=== PATIENT | male | born 1970 | race Caucasian/White ===

== ENCOUNTER → 2018-02-04 08:25 | Outpatient (CLI) | payer OTHER, SELFPAY ==
[2018-02-04 09:10] LABS: Hematocrit 44.7 % (41-53); Hemoglobin 15.9 g/dL (13.5-17.5); Mean Corpuscular HGB Conc 35.7 % (30-36); Mean Corpuscular Volume 81.3 fL (80-100); Platelet Count 203 X10^3/uL (150-400); Red Cell Distribution Width 13.9 % (11.6-14.8); White Blood Cell Count 7.5 X10^3/uL (4.5-11.0)
[2018-02-04 09:11] LABS: Add Manual Diff / Slide Review YES
[2018-02-04 09:23] LABS: Alanine Aminotransferase 33 IU/L (21-72); Albumin 4.3 g/dL (3.5-5.0); Albumin Globulin Ratio 1.7 (1.0-2.8); Alkaline Phosphatase 77 U/L (38-126); Aspartate Aminotransferase 22 IU/L (17-59); Bilirubin Total 0.8 mg/dL (0.2-1.3); Blood Urea Nitrogen 14 mg/dL (9-20); Calcium 9.2 mg/dL (8.4-10.2); Carbon Dioxide 32 mmol/L (22-32); Chloride 106 mmol/L (98-107); Cholesterol 165 mg/dL (140-199); Estimated Glomerular Filt Rate > 60.0 mL/min (>60); Globulin 2.6 g/dL (1.7-4.1); Glucose 141 mg/dL (70-100); HDL Cholesterol 38 mg/dL (40-60); HEMOLYSIS < 15 (0-50); LDL Cholesterol Calculated 100 mg/dL (<100); Potassium 4.4 mmol/L (3.4-5.1); Sodium 147 mmol/L (137-145); Total Protein 6.9 g/dL (6.3-8.2); Triglycerides 133 mg/dL (35-150)
[2018-02-04 09:28] LABS: Appearance Urine UA CLEAR; Bilirubin Urine UA NEGATIVE (NEGATIVE); Color Urine UA YELLOW; Glucose Urine UA NEGATIVE (Normal); Ketones Urine UA NEGATIVE (NEGATIVE); Leukocyte Esterase Urine UA NEGATIVE (NEGATIVE); Nitrite Urine UA Negative (Negative); Occult Blood Urine UA NEGATIVE (Negative); Protein Urine UA NEGATIVE (Negative); Specific Gravity Urine UA 1.025 (1.000-1.035); Urobilinogen Urine UA 0.2 E.U./dL (0.2)
[2018-02-04 09:46] LABS: Neutrophils Absolute Manual 5550 /uL (3000-5900); RBC Morphology Normal Morphology; Total Cells Counted 100
[2018-02-04 09:48] LABS: Prostate Specific Antigen 0.957 ng/mL (0.10-4.00)
[2018-02-04 10:03] LABS: Thyroid Stimulating Hormone 1.36 uIU/mL (0.47-4.68)
== END ==
PROVIDERS: PCP Family Medicine; Visit Provider Family Medicine
DX: E11.9 Type 2 diabetes mellitus without complications (principal); I10 Essential (primary) hypertension; Z51.81 Encounter for therapeutic drug level monitoring
CPT/HCPCS: 36415; 80053; 80061; 81003; 84153; 84443; 85025

== ENCOUNTER → 2018-05-02 16:12 | Outpatient (CLI) | payer OTHER, SELFPAY ==
--- NOTE | 2018-05-02 16:14 | DI.RAD.S_ITS ---
PROCEDURE: XR KNEE RT 3V INDICATIONS: right knee pain. TECHNIQUE: 3 views of the knee were acquired. COMPARISON: [facility], , KNEE 3V RIGHT, 12/31/2015, 9:34. FINDINGS: Bones: No fractures or dislocations. No suspicious bony lesions. Scattered degenerative spurring. The patella appears intact. Soft tissues: No joint effusion. Anterior soft tissue swelling No suspicious soft tissue calcifications. IMPRESSION: Anterior soft tissue swelling. No fracture. Dictated by: Torres Ruth M.D. on 05/02/2018 at 16:59 Approved by: Torres Ruth M.D. on 05/02/2018 at 17:00
== END ==
PROVIDERS: PCP Family Medicine; Visit Provider Physician Assistant
DX: M25.561 Pain in right knee (principal); M79.89 Other specified soft tissue disorders
CPT/HCPCS: 73562

== ENCOUNTER 2018-09-01 20:29 | Emergency (ER) | payer OTHER, SELFPAY ==
[2018-09-01 20:34] VITALS: BP 155/96; PULSE 97; RESP 18; TEMP 37; O2SAT 98; BMI 35.6
--- NOTE | 2018-09-01 20:38 | DI.RAD.S_ITS ---
PROCEDURE: XR ACUTE ABDOMEN SERIES INDICATIONS: abdominal pain with nausea and vomiting. hx of bowel resect TECHNIQUE: One view chest and two views of the abdomen were acquired. COMPARISON: None. FINDINGS: Surgical changes and devices: None. Chest: Lungs are clear. Heart size is normal. No pleural effusions. No pneumoperitoneum. Abdomen: Bowel gas pattern is normal. No suspicious calcifications. Visualized solid organ contours appear normal. Bones: No suspicious bony lesions. IMPRESSION: No acute cardiopulmonary pathology. No evidence of bowel obstruction no gross free air. Dictated by: Alex Stanley M.D. on 09/01/2018 at 21:11 Approved by: Alex Stanley M.D. on 09/01/2018 at 21:11
[2018-09-01 20:57] LABS: Add Manual Diff / Slide Review NO; Basophils Absolute Auto 100 /uL (0-100); Basophils Percent Auto 1.3 % (0-2); Eosinophils Absolute Auto 400 /uL (0-450); Eosinophils Percent Auto 3.1 % (2-4); Hematocrit 48.1 % (41-53); Hemoglobin 16.9 g/dL (13.5-17.5); Lymphocytes Absolute Auto 2600 /uL (1100-4500); Lymphocytes Percent Auto 22.6 % (25-40); Mean Corpuscular Hemoglobin 28.4 PG (26-34); Mean Corpuscular Volume 81.1 fL (80-100); Monocytes Absolute Auto 800 /uL (0-900); Neutrophils Absolute Auto 7600 /uL (1500-7000); Platelet Count 203 X10^3/uL (150-400); Red Blood Cell Count 5.94 X10^6/uL (4.5-5.9); Red Cell Distribution Width 13.8 % (11.6-14.8); White Blood Cell Count 11.5 X10^3/uL (4.5-11.0)
[2018-09-01 21:00] VITALS: BP 141/89; PULSE 87; RESP 16; O2SAT 98
[2018-09-01 21:01] LABS: Prothrombin Time 11.6 SECONDS (10.1-12.7)
[2018-09-01 21:04] LABS: PTT Partial Thromboplastin Tim 32 SECONDS (26.4-36.2)
[2018-09-01 21:05] LABS: Alanine Aminotransferase 43 IU/L (21-72); Albumin 4.9 g/dL (3.5-5.0); Albumin Globulin Ratio 1.6 (1.0-2.8); Alkaline Phosphatase 86 U/L (38-126); Aspartate Aminotransferase 26 IU/L (17-59); BUN Creatinine Ratio 18.9 (6-22); Bilirubin Total 0.9 mg/dL (0.2-1.3); Blood Urea Nitrogen 17 mg/dL (9-20); Calcium 9.5 mg/dL (8.4-10.2); Carbon Dioxide 28 mmol/L (22-32); Chloride 102 mmol/L (98-107); Estimated Glomerular Filt Rate > 60.0 mL/min (>60); Glucose 164 mg/dL (70-100); HEMOLYSIS < 15 (0-50); Lipase 61 U/L (23-300); Potassium 4.2 mmol/L (3.4-5.1); Sodium 141 mmol/L (137-145); Total Protein 7.9 g/dL (6.3-8.2)
--- NOTE | 2018-09-01 21:20 | DI.CT.S_ITS ---
PROCEDURE: CT ABDOMEN PELVIS W CON INDICATIONS: abdominal pain, hx abdominal surg TECHNIQUE: After the administration of intravenous contrast, 5 mm thick sections acquired from the diaphragm to the symphysis. 5 mm coronal and sagittal reformats were acquired. For radiation dose reduction, the following was used: automated exposure control, adjustment of mA and/or kV according to patient size. COMPARISON: None. FINDINGS: Image quality: Excellent. ABDOMEN: Lung bases: Lung bases are clear. Heart size is normal. Solid organs: Liver is normal in size and enhancement. Gallbladder is within normal limits. Biliary system is non dilated. Pancreas enhances normally. Spleen is enlarged. No discrete splenic lesion is noted. No adrenal nodules. Bilateral kidneys show no obstructing renal stone hydronephrosis. 6.3 x 7.5 x 7.9 cm slightly lobulated heterogeneously enhancing mass with solid and fluid density components is seen involving upper pole of right kidney and is concerning for neoplastic process such as renal cell carcinoma. Peritoneum and bowel: Small hiatal hernia is seen. Mild fluid distended small bowel loops are noted throughout abdomen with decompressed terminal ileal loops in right lower quadrant and suggestion of a transition point in right side of abdomen series 4 image 21 and series 2 image 43 and 42. No gross abnormal bowel wall thickening. No free fluid or free air. Post surgical changes involving rectosigmoid region is seen Nodes and vessels: No retroperitoneal or mesenteric adenopathy by size criteria. Aorta and inferior vena cava are normal in size. Miscellaneous: Liver hernia is seen and measures 5 cm in width containing a short segment of small bowel loop with no evidence of incarceration. PELVIS: Genitourinary: Bladder wall thickness is normal. Miscellaneous: No inguinal hernias or adenopathy. Bones: No suspicious bony lesions. No vertebral body compression fractures. IMPRESSION: 1. Finding is concerning for a low to moderate grade distal small bowel obstruction involving distal ileum in right lower quadrant. No free fluid or free air. Small hiatal hernia. Prior partial sigmoid resection. 2. Heterogeneously enhancing 6.3 x 7.5 x 7.9 cm right renal mass concerning for malignant process such as renal cell carcinoma. No hydronephrosis. Dictated by: Alex Stanley M.D. on 09/01/2018 at 22:15 Approved by: Alex Stanley M.D. on 09/01/2018 at 22:23
[2018-09-01] MEDS: ONDANSETRON 4 MG/2 ML INJ IV (21:36)
[2018-09-01] MEDS: MORPHINE 4 MG/ML INJ IV ×2 (21:36→22:39)
[2018-09-01] MEDS: SODIUM CHLORIDE 0.9% 1,000 ML 1000 ML IV (21:36)
--- NOTE | 2018-09-01 22:47 | ED.ABDPAIN ---
HPI - Abdominal Pain <LUIS Hernandez-BC - Last Filed: 09/02/18 00:15> General Chief Complaint: Abdominal Pain Stated Complaint: ABD PAIN Time Seen by Provider: 09/01/18 21:14 Source: patient and family Mode of arrival: ambulatory Limitations: no limitations History of Present Illness HPI narrative: The patient is a 48-year-old male nonsmoker with history of diverticulitis and anxiety presents with chief complaint of lower abdominal pain. he states that 9 years ago he had an episode of diverticulitis, with perforation that resulted in a colectomy. He states he feels the same today. He complains of nausea and vomiting. States his last bowel movement was just prior to arrival, though small. He denies any fevers chest pain or shortness of breath. He denies any dysuria urgency or frequency. He does complain of transient lower back pain on occasion. Related Data Previous Rx's Medication Instructions Recorded albuterol sulfate 3 ml INH X1 #100 ea 08/06/16 albuterol sulfate [Ventolin HFA] 2 puff INH QIDP PRN #1 inh 08/06/16 cyclobenzaprine 10 mg PO HSP PRN #30 tab 01/24/17 Lancets / QDAY #100 02/08/17 Test Strips - Freestyle str QDAY #100 02/08/17 metoprolol succinate ER 25 mg 25 mg PO QAM #90 tab 03/08/18 tablet,extended release 24 hr alprazolam 1 mg tablet 1 mg PO Q 8H PRN #30 tab 06/12/18 sertraline 100 mg tablet 100 mg PO QDAY #90 tab 08/21/18 Allergies Allergy/AdvReac Type Severity Reaction Status Date / Time metoclopramide [From REGLAN] Allergy Unknown Verified 09/01/18 20:33 Review of Systems <ANDREW Hernandez - Last Filed: 09/02/18 00:15> Review of Systems GENERAL: See HPI HEENT: Denies sinus pain, ear pain, sore throat, difficulty swallowing, dizziness. RESPIRATORY: Denies dyspnea, cough, wheezing, hemoptysis, sputum. CARDIOVASCULAR: Denies chest pain, palpitations, orthopnea, edema, GASTROINTESTINAL: See HPI : Denies dysuria, frequency, incontinence, hematuria, urinary retention. MUSCULOSKELETAL: denies weakness, joint pain, or bony pain SKIN: Denies rash, skin lesions, or other NEUROLOGIC: Denies weakness, headache, numbness, change in speech, confusion, seizures, incoordination. PSYCHIATRIC: No concerning psychosocial issues. 12 point review of systems is negative except for those stated above PFSH <ANDREW Hernandez - Last Filed: 09/02/18 00:15> Medical History Anxiety (Chronic) Arthritis (Chronic ~01/2017) Asthma (Chronic) Cataracts, bilateral (Chronic 09/2015) DDD (degenerative disc disease), lumbar (Chronic ~01/2017) Depression (Chronic) Diabetes (Chronic) Diverticular disease (Chronic) Hypertension (Chronic) Diverticulitis (Resolved) Low back pain (Resolved 02/2017) Social History Smoking Status: Never smoker Exam <ANDREW Hernandez - Last Filed: 09/02/18 00:15> Narrative Exam Narrative: GENERAL: This is a well-nourished, well-developed patient, appears uncomfortable. HEAD: Atraumatic. Normocephalic. No temporal or scalp tenderness. EYES: Pupils equal round and reactive. Extraocular motions intact. No scleral icterus. No injection or drainage. ENT: Nose without bleeding, purulent drainage or septal hematoma. Throat without erythema, tonsillar hypertrophy or exudate. Uvula midline. Airway patent. NECK: Trachea midline. No JVD or lymphadenopathy. Supple, nontender, no meningeal signs. CARDIOVASCULAR: Regular rate and rhythm without murmurs, gallops, or rubs. RESPIRATORY: Clear to auscultation. Breath sounds equal bilaterally. No wheezes, rales, or rhonchi. No cough. No accessory muscle use. No increased respiratory effort. GASTROINTESTINAL: Abdomen soft, active bowel sounds all 4 quadrants nondistended. No hepato-splenomegaly, or palpable masses. No guarding. diffuse tenderness to palpation right lower quadrant and left lower quadrant. EXTREMITIES: No clubbing, cyanosis, or edema. No joint tenderness, effusion, or edema noted. BACK: Nontender without deformity or crepitance. No flank tenderness. NEURO: AOx3. SKIN: No rash or erythema. Initial Vital Signs Initial Vital Signs: Vital Signs Temperature 98.6 F 09/01/18 20:34 Pulse Rate 97 H 09/01/18 20:34 Respiratory Rate 18 09/01/18 20:34 Blood Pressure 155/96 H 09/01/18 20:34 Pulse Oximetry 98 09/01/18 20:34 <Dominick Lackey DO - Last Filed: 09/02/18 06:53> Initial Vital Signs Initial Vital Signs: Vital Signs Temperature 98.6 F 09/01/18 20:34 Pulse Rate 97 H 09/01/18 20:34 Respiratory Rate 18 09/01/18 20:34 Blood Pressure 155/96 H 09/01/18 20:34 Pulse Oximetry 98 09/01/18 20:34 Course <ANDREW Hernandez - Last Filed: 09/02/18 00:15> Orders Ordered: ED Orders 09/01/18 23:50 XR chest 1V Stat Discontinued Medications Hydromorphone HCl (Dilaudid) 0.5 mg IV NOW ONE Stop: 09/01/18 23:13 Last Admin: 09/02/18 00:01 Dose: 0.5 mg Hydromorphone HCl (Dilaudid) 0.5 mg IV NOW ONE Stop: 09/02/18 00:10 Last Admin: 09/02/18 00:10 Dose: 0.5 mg Hydromorphone HCl (Dilaudid) 0.5 mg IV NOW ONE Stop: 09/02/18 02:32 Last Admin: 09/02/18 02:33 Dose: 0.5 mg Sodium Chloride (Normal Saline 0.9%) 1,000 mls @ 1,000 mls/hr IV BOLUS PRN PRN Reason: Fluid replacement Last Infusion: 09/01/18 22:37 Dose: 0 mls/hr Admin: 09/01/18 21:36 Dose: 1,000 mls/hr Morphine Sulfate (Morphine) 4 mg IV NOW ONE Stop: 09/01/18 21:20 Last Admin: 09/01/18 21:36 Dose: 4 mg Morphine Sulfate (Morphine) 4 mg IV NOW ONE Stop: 09/01/18 22:10 Last Admin: 09/01/18 22:39 Dose: 4 mg Ondansetron HCl (Zofran) 4 mg IV NOW ONE Stop: 09/01/18 20:44 Last Admin: 09/01/18 21:36 Dose: 4 mg Ondansetron HCl (Zofran) 4 mg IV NOW ONE Stop: 09/01/18 21:20 Last Admin: 09/01/18 21:36 Dose: Not Given Ondansetron HCl (Zofran) 4 mg IV NOW ONE Stop: 09/02/18 00:03 Last Admin: 09/02/18 00:04 Dose: 4 mg Consultations Consultation #1: Spoke with Radiology regarding patient's CT results. I discussed these results with the patient and his at length. We discussed the possibility that he has kidney cancer given the new mass on his kidney. Time: 22:20 Consultation #2: Spoke with Dr. Khan regarding the patient. He stated that given the patient's renal mass, he should be transferred somewhere with Urology as he was concerned that metastasis would be causing a small bowel obstruction. Subsequently outside facility transfer center were contacted. Time: 22:50 Vital Signs - 8 hr 09/01/18 22:59 09/02/18 00:58 09/02/18 01:30 Pulse Rate 65 101 H 111 H Respiratory Rate 16 18 16 Blood Pressure [Left Arm] 121/83 144/95 H 129/88 Pulse Oximetry 95 95 95 09/02/18 02:15 Pulse Rate 109 H Respiratory Rate 16 Blood Pressure [Left Arm] 130/89 Pulse Oximetry 97 <Dominick Lackey, - Last Filed: 09/02/18 06:53> Orders Ordered: ED Orders 09/01/18 23:50 XR chest 1V Stat Discontinued Medications Hydromorphone HCl (Dilaudid) 0.5 mg IV NOW ONE Stop: 09/01/18 23:13 Last Admin: 09/02/18 00:01 Dose: 0.5 mg Hydromorphone HCl (Dilaudid) 0.5 mg IV NOW ONE Stop: 09/02/18 00:10 Last Admin: 09/02/18 00:10 Dose: 0.5 mg Hydromorphone HCl (Dilaudid) 0.5 mg IV NOW ONE Stop: 09/02/18 02:32 Last Admin: 09/02/18 02:33 Dose: 0.5 mg Sodium Chloride (Normal Saline 0.9%) 1,000 mls @ 1,000 mls/hr IV BOLUS PRN PRN Reason: Fluid replacement Last Infusion: 09/01/18 22:37 Dose: 0 mls/hr Admin: 09/01/18 21:36 Dose: 1,000 mls/hr Morphine Sulfate (Morphine) 4 mg IV NOW ONE Stop: 09/01/18 21:20 Last Admin: 09/01/18 21:36 Dose: 4 mg Morphine Sulfate (Morphine) 4 mg IV NOW ONE Stop: 09/01/18 22:10 Last Admin: 09/01/18 22:39 Dose: 4 mg Ondansetron HCl (Zofran) 4 mg IV NOW ONE Stop: 09/01/18 20:44 Last Admin: 09/01/18 21:36 Dose: 4 mg Ondansetron HCl (Zofran) 4 mg IV NOW ONE Stop: 09/01/18 21:20 Last Admin: 09/01/18 21:36 Dose: Not Given Ondansetron HCl (Zofran) 4 mg IV NOW ONE Stop: 09/02/18 00:03 Last Admin: 09/02/18 00:04 Dose: 4 mg Vital Signs - 8 hr 09/01/18 22:59 09/02/18 00:58 09/02/18 01:30 Pulse Rate 65 101 H 111 H Respiratory Rate 16 18 16 Blood Pressure [Left Arm] 121/83 144/95 H 129/88 Pulse Oximetry 95 95 95 09/02/18 02:15 Pulse Rate 109 H Respiratory Rate 16 Blood Pressure [Left Arm] 130/89 Pulse Oximetry 97 MDM - Abdominal Pain <LUIS Hernandez-BC - Last Filed: 09/02/18 00:15> Lab Data Result diagrams: 09/01/18 20:45 09/01/18 20:45 Lab Results 09/01/18 09/01/18 09/01/18 Range/Units 20:45 20:45 20:45 WBC 11.5 H (4.5-11.0) X10^3/uL RBC 5.94 H (4.5-5.9) X10^6/uL Hgb 16.9 (13.5-17.5) g/dL Hct 48.1 (41-53) % MCV 81.1 (80-100) fL MCH 28.4 (26-34) PG MCHC 35.0 (30-36) % RDW 13.8 (11.6-14.8) % Plt Count 203 (150-400) X10^3/uL Neut % (Auto) 66.0 (50-75) % Lymph % (Auto) 22.6 L (25-40) % Toole % (Auto) 7.0 (3-14) % Eos % (Auto) 3.1 (2-4) % Baso % (Auto) 1.3 (0-2) % Neut # (Auto) 7600 H (4368-9733) /uL Lymph # (Auto) 2600 (2442-2719) /uL Toole # (Auto) 800 (0-900) /uL Eos # (Auto) 400 (0-450) /uL Baso # (Auto) 100 (0-100) /uL PT 11.6 (10.1-12.7) SECONDS INR 1.0 (0.9-1.3) APTT 32 (26.4-36.2) SECONDS Sodium 141 (137-145) mmol/L Potassium 4.2 (3.4-5.1) mmol/L Chloride 102 (98-107) mmol/L Carbon Dioxide 28 (22-32) mmol/L BUN 17 (9-20) mg/dL Creatinine 0.90 (0.66-1.25) mg/dL Estimated GFR > 60.0 (>60) mL/min BUN/Creatinine Ratio 18.9 (6-22) Glucose 164 H (70-100) mg/dL Calcium 9.5 (8.4-10.2) mg/dL Total Bilirubin 0.9 (0.2-1.3) mg/dL AST 26 (17-59) IU/L ALT 43 (21-72) IU/L Alkaline Phosphatase 86 (38-126) U/L Total Protein 7.9 (6.3-8.2) g/dL Albumin 4.9 (3.5-5.0) g/dL Globulin 3.0 (1.7-4.1) g/dL Albumin/Globulin Ratio 1.6 (1.0-2.8) Lipase 61 (23-300) U/L Point of care testing: Urine Dip Bedside Urine Glucose Negative Bedside Urine Bilirubin - Negative Bedside Urine Ketone +/- 5 Urine Specific [place] 1.010 Bedside Urine Occult Blood - Negative Bedside Urine pH 6.5 Bedside Urine Protein - Negative Bedside Urine Urobilinogen +/- 1mg Bedside Urine Nitrite - Negative Bedside Urine Leukocytes - Negative Esterase Imaging Data CT scan - abdomen: Radiologist's impression: Chart [facility] Diagn[facility] DATE TYPE STATUS AUTHOR Hx 09/01/18 21:20 JadenAlex 09/01/18 20:38 Alex Stanley 05/02/18 16:14 Torres Ruth Bryce H 48, M1 REG ER, ED.LOC - Main ED: R08 187.96cm 126.099kg BMI: 35.7kg/m? 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 5 mm coronal and sagittal reformats were acquired. For radiation dose reduction, the following was used: automated exposure control, adjustment of mA and/or kV according to patient size. COMPARISON: None. FINDINGS: Image quality: Excellent. ABDOMEN: Lung bases: Lung bases are clear. Heart size is normal. Solid organs: Liver is normal in size and enhancement. Gallbladder is within normal limits. Biliary system is non dilated. Pancreas enhances normally. Spleen is enlarged. No discrete splenic lesion is noted. No adrenal nodules. Bilateral kidneys show no obstructing renal stone hydronephrosis. 6.3 x 7.5 x 7.9 cm slightly lobulated heterogeneously enhancing mass with solid and fluid density components is seen involving upper pole of right kidney and is concerning for neoplastic process such as renal cell carcinoma. Peritoneum and bowel: Small hiatal hernia is seen. Mild fluid distended small bowel loops are noted throughout abdomen with decompressed terminal ileal loops in right lower quadrant and suggestion of a transition point in right side of abdomen series 4 image 21 and series 2 image 43 and 42. No gross abnormal bowel wall thickening. No free fluid or free air. Post surgical changes involving rectosigmoid region is seen Nodes and vessels: No retroperitoneal or mesenteric adenopathy by size criteria. Aorta and inferior vena cava are normal in size. Miscellaneous: Liver hernia is seen and measures 5 cm in width containing a short segment of small bowel loop with no evidence of incarceration. PELVIS: Genitourinary: Bladder wall thickness is normal. Miscellaneous: No inguinal hernias or adenopathy. Bones: No suspicious bony lesions. No vertebral body compression fractures. IMPRESSION: 1. Finding is concerning for a low to moderate grade distal small bowel obstruction involving distal ileum in right lower quadrant. No free fluid or free air. Small hiatal hernia. Prior partial sigmoid resection. 2. Heterogeneously enhancing 6.3 x 7.5 x 7.9 cm right renal mass concerning for malignant process such as renal cell carcinoma. No hydronephrosis. Dictated by: Alex Stanley M.D. on 09/01/2018 at 22:15 Approved by: Alex Stanley M.D. on 09/01/2018 at 22:23 Abdominal x-ray: Radiologist's impression: Adriano Pandey 48 M 1970 [place] [address] XRay Report Signed Patient: Adriano Pandey HMR#: [id number] : 1970Acct:[id number] Age/Sex: 48 / MDate of Service: 09/01/18 Loc: ED Accession Number: [id number] Procedure: XR acute abdomen series Ordering Provider: Dominick Lackey D.O. PROCEDURE: XR ACUTE ABDOMEN SERIES INDICATIONS: abdominal pain with nausea and vomiting. hx of bowel resect TECHNIQUE: One view chest and two views of the abdomen were acquired. COMPARISON: None. FINDINGS: Surgical changes and devices: None. Chest: Lungs are clear. Heart size is normal. No pleural effusions. No pneumoperitoneum. Abdomen: Bowel gas pattern is normal. No suspicious calcifications. Visualized solid organ contours appear normal. Bones: No suspicious bony lesions. IMPRESSION: No acute cardiopulmonary pathology. No evidence of bowel obstruction no gross free air. Dictated by: Alex Stanley M.D. on 09/01/2018 at 21:11 Approved by: Alex Stanley M.D. on 09/01/2018 at 21:11 [facility] Narrative Medical decision making narrative: The patient is a 48-year-old male presents with abdominal pain. CT scan revealed a moderate small bowel obstruction. I spoke with our surgeon on-call Dr. Khan who suggested that the patient go somewhere else as he has a new renal mass. I spoke at length with the patient and his about the possibility of malignancy given his new renal mass. Both [facility] and [facility] were contacted for possible transfer. [facility] was also contacted as was [facility]. The patient was given medications for pain and nausea and an NG tube was inserted. It was found that [facility], [facility] and [facility] were all full. Patient signed out to Dr. Lackey at midnight with a call in to [facility] as well as [place]. <Dominick Lackey, DO - Last Filed: 09/02/18 06:53> Lab Data Lab Results 09/01/18 09/01/18 09/01/18 Range/Units 20:45 20:45 20:45 WBC 11.5 H (4.5-11.0) X10^3/uL RBC 5.94 H (4.5-5.9) X10^6/uL Hgb 16.9 (13.5-17.5) g/dL Hct 48.1 (41-53) % MCV 81.1 (80-100) fL MCH 28.4 (26-34) PG MCHC 35.0 (30-36) % RDW 13.8 (11.6-14.8) % Plt Count 203 (150-400) X10^3/uL Neut % (Auto) 66.0 (50-75) % Lymph % (Auto) 22.6 L (25-40) % Toole % (Auto) 7.0 (3-14) % Eos % (Auto) 3.1 (2-4) % Baso % (Auto) 1.3 (0-2) % Neut # (Auto) 7600 H (7866-1195) /uL Lymph # (Auto) 2600 (0198-1681) /uL Toole # (Auto) 800 (0-900) /uL Eos # (Auto) 400 (0-450) /uL Baso # (Auto) 100 (0-100) /uL PT 11.6 (10.1-12.7) SECONDS INR 1.0 (0.9-1.3) APTT 32 (26.4-36.2) SECONDS Sodium 141 (137-145) mmol/L Potassium 4.2 (3.4-5.1) mmol/L Chloride 102 (98-107) mmol/L Carbon Dioxide 28 (22-32) mmol/L BUN 17 (9-20) mg/dL Creatinine 0.90 (0.66-1.25) mg/dL Estimated GFR > 60.0 (>60) mL/min BUN/Creatinine Ratio 18.9 (6-22) Glucose 164 H (70-100) mg/dL Calcium 9.5 (8.4-10.2) mg/dL Total Bilirubin 0.9 (0.2-1.3) mg/dL AST 26 (17-59) IU/L ALT 43 (21-72) IU/L Alkaline Phosphatase 86 (38-126) U/L Total Protein 7.9 (6.3-8.2) g/dL Albumin 4.9 (3.5-5.0) g/dL Globulin 3.0 (1.7-4.1) g/dL Albumin/Globulin Ratio 1.6 (1.0-2.8) Lipase 61 (23-300) U/L Point of care testing: Urine Dip Bedside Urine Glucose Negative Bedside Urine Bilirubin - Negative Bedside Urine Ketone +/- 5 Urine Specific [place] 1.010 Bedside Urine Occult Blood - Negative Bedside Urine pH 6.5 Bedside Urine Protein - Negative Bedside Urine Urobilinogen +/- 1mg Bedside Urine Nitrite - Negative Bedside Urine Leukocytes - Negative Esterase Discharge Plan Departure Patient Disposition: [facility] Clinical Impression: Small bowel obstruction Discharge Date/Time: 09/02/18 02:43 Interventions: ED Discharge Assessment Last Done: 09/02/18 02:05 Prescriptions: No Action alprazolam 1 mg tablet 1 mg PO Q 8H PRN (Reason: anxiety) Qty: 30 RF: 0 metoprolol succinate [Toprol XL] 25 mg tablet extended release 24 hr 25 mg PO QAM Qty: 90 RF: 3 albuterol sulfate 2.5 MG/3 ML solution for nebulization 3 ml INH X1 Qty: 100 RF: 3 albuterol sulfate [Ventolin HFA] 90 MCG/PUFF HFA aerosol inhaler 2 puff INH QIDP PRNQty: 1 RF: 5 cyclobenzaprine 10 MG tablet 10 mg PO HSP PRNQty: 30 RF: 0 Lancets QDAY Qty: 100 RF: 0 Test Strips - Freestyle QDAY Qty: 100 RF: 0 sertraline 100 mg tablet 100 mg PO QDAY Qty: 90 RF: 0 Referrals: Carline Renteria DO [Primary Care Provider] - <Dominick Lackey DO - Last Filed: 09/02/18 06:53> Cosign ED Attending Mary Jo Attestation: I was immediately available in the department for consultation. Documentation has been reviewed. I agree with assessment and plan.
[2018-09-01 22:59] VITALS: BP 121/83; PULSE 65; RESP 16; O2SAT 95
--- NOTE | 2018-09-01 23:01 | ED_ITS ---
HPI - Abdominal Pain <LUIS Hernandez-BC - Last Filed: 09/02/18 00:15> General Chief Complaint: Abdominal Pain Stated Complaint: ABD PAIN Time Seen by Provider: 09/01/18 21:14 Source: patient and family Mode of arrival: ambulatory Limitations: no limitations History of Present Illness HPI narrative: The patient is a 48-year-old male nonsmoker with history of diverticulitis and anxiety presents with chief complaint of lower abdominal pain. he states that 9 years ago he had an episode of diverticulitis, with perforation that resulted in a colectomy. He states he feels the same today. He complains of nausea and vomiting. States his last bowel movement was just prior to arrival, though small. He denies any fevers chest pain or shortness of breath. He denies any dysuria urgency or frequency. He does complain of transient lower back pain on occasion. Related Data Previous Rx's Medication Instructions Recorded albuterol sulfate 3 ml INH X1 #100 ea 08/06/16 albuterol sulfate [Ventolin HFA] 2 puff INH QIDP PRN #1 inh 08/06/16 cyclobenzaprine 10 mg PO HSP PRN #30 tab 01/24/17 Lancets / QDAY #100 02/08/17 Test Strips - Freestyle str QDAY #100 02/08/17 metoprolol succinate ER 25 mg 25 mg PO QAM #90 tab 03/08/18 tablet,extended release 24 hr alprazolam 1 mg tablet 1 mg PO Q 8H PRN #30 tab 06/12/18 sertraline 100 mg tablet 100 mg PO QDAY #90 tab 08/21/18 Allergies Allergy/AdvReac Type Severity Reaction Status Date / Time metoclopramide [From REGLAN] Allergy Unknown Verified 09/01/18 20:33 Review of Systems <ANDREW Hernandez - Last Filed: 09/02/18 00:15> Review of Systems GENERAL: See HPI HEENT: Denies sinus pain, ear pain, sore throat, difficulty swallowing, dizziness. RESPIRATORY: Denies dyspnea, cough, wheezing, hemoptysis, sputum. CARDIOVASCULAR: Denies chest pain, palpitations, orthopnea, edema, GASTROINTESTINAL: See HPI : Denies dysuria, frequency, incontinence, hematuria, urinary retention. MUSCULOSKELETAL: denies weakness, joint pain, or bony pain SKIN: Denies rash, skin lesions, or other NEUROLOGIC: Denies weakness, headache, numbness, change in speech, confusion, seizures, incoordination. PSYCHIATRIC: No concerning psychosocial issues. 12 point review of systems is negative except for those stated above PFSH <ANDREW Hernandez - Last Filed: 09/02/18 00:15> Medical History Anxiety (Chronic) Arthritis (Chronic ~01/2017) Asthma (Chronic) Cataracts, bilateral (Chronic 09/2015) DDD (degenerative disc disease), lumbar (Chronic ~01/2017) Depression (Chronic) Diabetes (Chronic) Diverticular disease (Chronic) Hypertension (Chronic) Diverticulitis (Resolved) Low back pain (Resolved 02/2017) Social History Smoking Status: Never smoker Exam <ANDREW Hernandez - Last Filed: 09/02/18 00:15> Narrative Exam Narrative: GENERAL: This is a well-nourished, well-developed patient, appears uncomfortable. HEAD: Atraumatic. Normocephalic. No temporal or scalp tenderness. EYES: Pupils equal round and reactive. Extraocular motions intact. No scleral icterus. No injection or drainage. ENT: Nose without bleeding, purulent drainage or septal hematoma. Throat without erythema, tonsillar hypertrophy or exudate. Uvula midline. Airway patent. NECK: Trachea midline. No JVD or lymphadenopathy. Supple, nontender, no meningeal signs. CARDIOVASCULAR: Regular rate and rhythm without murmurs, gallops, or rubs. RESPIRATORY: Clear to auscultation. Breath sounds equal bilaterally. No wheezes, rales, or rhonchi. No cough. No accessory muscle use. No increased respiratory effort. GASTROINTESTINAL: Abdomen soft, active bowel sounds all 4 quadrants nondistended. No hepato-splenomegaly, or palpable masses. No guarding. diffuse tenderness to palpation right lower quadrant and left lower quadrant. EXTREMITIES: No clubbing, cyanosis, or edema. No joint tenderness, effusion, or edema noted. BACK: Nontender without deformity or crepitance. No flank tenderness. NEURO: AOx3. SKIN: No rash or erythema. Initial Vital Signs Initial Vital Signs: Vital Signs Temperature 98.6 F 09/01/18 20:34 Pulse Rate 97 H 09/01/18 20:34 Respiratory Rate 18 09/01/18 20:34 Blood Pressure 155/96 H 09/01/18 20:34 Pulse Oximetry 98 09/01/18 20:34 <Dominick Lackey DO - Last Filed: 09/02/18 06:53> Initial Vital Signs Initial Vital Signs: Vital Signs Temperature 98.6 F 09/01/18 20:34 Pulse Rate 97 H 09/01/18 20:34 Respiratory Rate 18 09/01/18 20:34 Blood Pressure 155/96 H 09/01/18 20:34 Pulse Oximetry 98 09/01/18 20:34 Course <ANDREW Hernandez - Last Filed: 09/02/18 00:15> Orders Ordered: ED Orders 09/01/18 23:50 XR chest 1V Stat Discontinued Medications Hydromorphone HCl (Dilaudid) 0.5 mg IV NOW ONE Stop: 09/01/18 23:13 Last Admin: 09/02/18 00:01 Dose: 0.5 mg Hydromorphone HCl (Dilaudid) 0.5 mg IV NOW ONE Stop: 09/02/18 00:10 Last Admin: 09/02/18 00:10 Dose: 0.5 mg Hydromorphone HCl (Dilaudid) 0.5 mg IV NOW ONE Stop: 09/02/18 02:32 Last Admin: 09/02/18 02:33 Dose: 0.5 mg Sodium Chloride (Normal Saline 0.9%) 1,000 mls @ 1,000 mls/hr IV BOLUS PRN PRN Reason: Fluid replacement Last Infusion: 09/01/18 22:37 Dose: 0 mls/hr Admin: 09/01/18 21:36 Dose: 1,000 mls/hr Morphine Sulfate (Morphine) 4 mg IV NOW ONE Stop: 09/01/18 21:20 Last Admin: 09/01/18 21:36 Dose: 4 mg Morphine Sulfate (Morphine) 4 mg IV NOW ONE Stop: 09/01/18 22:10 Last Admin: 09/01/18 22:39 Dose: 4 mg Ondansetron HCl (Zofran) 4 mg IV NOW ONE Stop: 09/01/18 20:44 Last Admin: 09/01/18 21:36 Dose: 4 mg Ondansetron HCl (Zofran) 4 mg IV NOW ONE Stop: 09/01/18 21:20 Last Admin: 09/01/18 21:36 Dose: Not Given Ondansetron HCl (Zofran) 4 mg IV NOW ONE Stop: 09/02/18 00:03 Last Admin: 09/02/18 00:04 Dose: 4 mg Consultations Consultation #1: Spoke with Radiology regarding patient's CT results. I discussed these results with the patient and his at length. We discussed the possibility that he has kidney cancer given the new mass on his kidney. Time: 22:20 Consultation #2: Spoke with Dr. Khan regarding the patient. He stated that given the patient's renal mass, he should be transferred somewhere with Urology as he was concerned that metastasis would be causing a small bowel obstruction. Subsequently outside facility transfer center were contacted. Time: 22:50 Vital Signs - 8 hr 09/01/18 22:59 09/02/18 00:58 09/02/18 01:30 Pulse Rate 65 101 H 111 H Respiratory Rate 16 18 16 Blood Pressure [Left Arm] 121/83 144/95 H 129/88 Pulse Oximetry 95 95 95 09/02/18 02:15 Pulse Rate 109 H Respiratory Rate 16 Blood Pressure [Left Arm] 130/89 Pulse Oximetry 97 <Dominick Lackey, - Last Filed: 09/02/18 06:53> Orders Ordered: ED Orders 09/01/18 23:50 XR chest 1V Stat Discontinued Medications Hydromorphone HCl (Dilaudid) 0.5 mg IV NOW ONE Stop: 09/01/18 23:13 Last Admin: 09/02/18 00:01 Dose: 0.5 mg Hydromorphone HCl (Dilaudid) 0.5 mg IV NOW ONE Stop: 09/02/18 00:10 Last Admin: 09/02/18 00:10 Dose: 0.5 mg Hydromorphone HCl (Dilaudid) 0.5 mg IV NOW ONE Stop: 09/02/18 02:32 Last Admin: 09/02/18 02:33 Dose: 0.5 mg Sodium Chloride (Normal Saline 0.9%) 1,000 mls @ 1,000 mls/hr IV BOLUS PRN PRN Reason: Fluid replacement Last Infusion: 09/01/18 22:37 Dose: 0 mls/hr Admin: 09/01/18 21:36 Dose: 1,000 mls/hr Morphine Sulfate (Morphine) 4 mg IV NOW ONE Stop: 09/01/18 21:20 Last Admin: 09/01/18 21:36 Dose: 4 mg Morphine Sulfate (Morphine) 4 mg IV NOW ONE Stop: 09/01/18 22:10 Last Admin: 09/01/18 22:39 Dose: 4 mg Ondansetron HCl (Zofran) 4 mg IV NOW ONE Stop: 09/01/18 20:44 Last Admin: 09/01/18 21:36 Dose: 4 mg Ondansetron HCl (Zofran) 4 mg IV NOW ONE Stop: 09/01/18 21:20 Last Admin: 09/01/18 21:36 Dose: Not Given Ondansetron HCl (Zofran) 4 mg IV NOW ONE Stop: 09/02/18 00:03 Last Admin: 09/02/18 00:04 Dose: 4 mg Vital Signs - 8 hr 09/01/18 22:59 09/02/18 00:58 09/02/18 01:30 Pulse Rate 65 101 H 111 H Respiratory Rate 16 18 16 Blood Pressure [Left Arm] 121/83 144/95 H 129/88 Pulse Oximetry 95 95 95 09/02/18 02:15 Pulse Rate 109 H Respiratory Rate 16 Blood Pressure [Left Arm] 130/89 Pulse Oximetry 97 MDM - Abdominal Pain <LUIS Hernandez-BC - Last Filed: 09/02/18 00:15> Lab Data Result diagrams: 09/01/18 20:45 09/01/18 20:45 Lab Results 09/01/18 09/01/18 09/01/18 Range/Units 20:45 20:45 20:45 WBC 11.5 H (4.5-11.0) X10^3/uL RBC 5.94 H (4.5-5.9) X10^6/uL Hgb 16.9 (13.5-17.5) g/dL Hct 48.1 (41-53) % MCV 81.1 (80-100) fL MCH 28.4 (26-34) PG MCHC 35.0 (30-36) % RDW 13.8 (11.6-14.8) % Plt Count 203 (150-400) X10^3/uL Neut % (Auto) 66.0 (50-75) % Lymph % (Auto) 22.6 L (25-40) % [place] % (Auto) 7.0 (3-14) % Eos % (Auto) 3.1 (2-4) % Baso % (Auto) 1.3 (0-2) % Neut # (Auto) 7600 H (1553-9786) /uL Lymph # (Auto) 2600 (0654-9912) /uL [place] # (Auto) 800 (0-900) /uL Eos # (Auto) 400 (0-450) /uL Baso # (Auto) 100 (0-100) /uL PT 11.6 (10.1-12.7) SECONDS INR 1.0 (0.9-1.3) APTT 32 (26.4-36.2) SECONDS Sodium 141 (137-145) mmol/L Potassium 4.2 (3.4-5.1) mmol/L Chloride 102 (98-107) mmol/L Carbon Dioxide 28 (22-32) mmol/L BUN 17 (9-20) mg/dL Creatinine 0.90 (0.66-1.25) mg/dL Estimated GFR > 60.0 (>60) mL/min BUN/Creatinine Ratio 18.9 (6-22) Glucose 164 H (70-100) mg/dL Calcium 9.5 (8.4-10.2) mg/dL Total Bilirubin 0.9 (0.2-1.3) mg/dL AST 26 (17-59) IU/L ALT 43 (21-72) IU/L Alkaline Phosphatase 86 (38-126) U/L Total Protein 7.9 (6.3-8.2) g/dL Albumin 4.9 (3.5-5.0) g/dL Globulin 3.0 (1.7-4.1) g/dL Albumin/Globulin Ratio 1.6 (1.0-2.8) Lipase 61 (23-300) U/L Point of care testing: Urine Dip Bedside Urine Glucose Negative Bedside Urine Bilirubin - Negative Bedside Urine Ketone +/- 5 Urine Specific [place] 1.010 Bedside Urine Occult Blood - Negative Bedside Urine pH 6.5 Bedside Urine Protein - Negative Bedside Urine Urobilinogen +/- 1mg Bedside Urine Nitrite - Negative Bedside Urine Leukocytes - Negative Esterase Imaging Data CT scan - abdomen: Radiologist's impression: Chart Viewer Diagnostics DATE TYPE STATUS AUTHOR Hx 09/01/18 21:20 JadenAlex 09/01/18 20:38 Alex Stanley 05/02/18 16:14 Torres Ruth Bryce H 48, M1 REG ER, ED.LOC - Main ED: R08 187.96cm 126.099kg BMI: 35.7kg/m? Abdominal Pain Search Chart NF - Not included in interaction checking ONSET Today 22:59 Adriano Pandey 48 M 1970 [place] [address] CT Scan Report Signed Patient: Adriano Pandey HMR#: [id number] : 1970Acct:[id number] Age/Sex: 48 / MDate of Service: 09/01/18 Loc: ED Accession Number: [id number] Procedure: CT abdomen pelvis w con Ordering Provider: Mary Jarrett REEL SYSTEM OPERATOR- PROCEDURE: CT ABDOMEN PELVIS W CON INDICATIONS: abdominal pain, hx abdominal surg TECHNIQUE: After the administration of intravenous contrast, 5 mm thick sections acquired from the diaphragm to the symphysis. 5 mm coronal and sagittal reformats were acquired. For radiation dose reduction, the following was used: automated exposure control, adjustment of mA and/or kV according to patient size. COMPARISON: None. FINDINGS: Image quality: Excellent. ABDOMEN: Lung bases: Lung bases are clear. Heart size is normal. Solid organs: Liver is normal in size and enhancement. Gallbladder is within normal limits. Biliary system is non dilated. Pancreas enhances normally. Spleen is enlarged. No discrete splenic lesion is noted. No adrenal nodules. Bilateral kidneys show no obstructing renal stone hydronephrosis. 6.3 x 7.5 x 7.9 cm slightly lobulated heterogeneously enhancing mass with solid and fluid density components is seen involving upper pole of right kidney and is concerning for neoplastic process such as renal cell carcinoma. Peritoneum and bowel: Small hiatal hernia is seen. Mild fluid distended small bowel loops are noted throughout abdomen with decompressed terminal ileal loops in right lower quadrant and suggestion of a transition point in right side of abdomen series 4 image 21 and series 2 image 43 and 42. No gross abnormal bowel wall thickening. No free fluid or free air. Post surgical changes involving rectosigmoid region is seen Nodes and vessels: No retroperitoneal or mesenteric adenopathy by size criteria. Aorta and inferior vena cava are normal in size. Miscellaneous: Liver hernia is seen and measures 5 cm in width containing a short segment of small bowel loop with no evidence of incarceration. PELVIS: Genitourinary: Bladder wall thickness is normal. Miscellaneous: No inguinal hernias or adenopathy. Bones: No suspicious bony lesions. No vertebral body compression fractures. IMPRESSION: 1. Finding is concerning for a low to moderate grade distal small bowel obstruction involving distal ileum in right lower quadrant. No free fluid or free air. Small hiatal hernia. Prior partial sigmoid resection. 2. Heterogeneously enhancing 6.3 x 7.5 x 7.9 cm right renal mass concerning for malignant process such as renal cell carcinoma. No hydronephrosis. Dictated by: Alex Stanley M.D. on 09/01/2018 at 22:15 Approved by: Alex Stanley M.D. on 09/01/2018 at 22:23 Abdominal x-ray: Radiologist's impression: Adriano Pandey 48 M 1970 [place] [address] XRay Report Signed Patient: Adriano Pandey HMR#: [id number] : 1970Acct:[id number] Age/Sex: 48 / MDate of Service: 09/01/18 Loc: ED Accession Number: [id number] Procedure: XR acute abdomen series Ordering Provider: Dominick Lackey D.O. PROCEDURE: XR ACUTE ABDOMEN SERIES INDICATIONS: abdominal pain with nausea and vomiting. hx of bowel resect TECHNIQUE: One view chest and two views of the abdomen were acquired. COMPARISON: None. FINDINGS: Surgical changes and devices: None. Chest: Lungs are clear. Heart size is normal. No pleural effusions. No pneumoperitoneum. Abdomen: Bowel gas pattern is normal. No suspicious calcifications. Visualized solid organ contours appear normal. Bones: No suspicious bony lesions. IMPRESSION: No acute cardiopulmonary pathology. No evidence of bowel obstruction no gross free air. Dictated by: Alex Stanley M.D. on 09/01/2018 at 21:11 Approved by: Alex Stanley M.D. on 09/01/2018 at 21:11 [facility] Narrative Medical decision making narrative: The patient is a 48-year-old male presents with abdominal pain. CT scan revealed a moderate small bowel obstruction. I spoke with our surgeon on-call Dr. Khan who suggested that the patient go somewhere else as he has a new renal mass. I spoke at length with the patient and his about the possibility of malignancy given his new renal mass. Both [facility] and [facility] were contacted for possible transfer. [facility] was also contacted as was [facility]. The patient was given medications for pain and nausea and an NG tube was inserted. It was found that [facility], [facility] and [facility] were all full. Patient signed out to Dr. Lackey at midnight with a call in to [facility] as well as [facility]. <Dominick Lackey, DO - Last Filed: 09/02/18 06:53> Lab Data Lab Results 09/01/18 09/01/18 09/01/18 Range/Units 20:45 20:45 20:45 WBC 11.5 H (4.5-11.0) X10^3/uL RBC 5.94 H (4.5-5.9) X10^6/uL Hgb 16.9 (13.5-17.5) g/dL Hct 48.1 (41-53) % MCV 81.1 (80-100) fL MCH 28.4 (26-34) PG MCHC 35.0 (30-36) % RDW 13.8 (11.6-14.8) % Plt Count 203 (150-400) X10^3/uL Neut % (Auto) 66.0 (50-75) % Lymph % (Auto) 22.6 L (25-40) % [place] % (Auto) 7.0 (3-14) % Eos % (Auto) 3.1 (2-4) % Baso % (Auto) 1.3 (0-2) % Neut # (Auto) 7600 H (9704-3612) /uL Lymph # (Auto) 2600 (2825-2183) /uL [place] # (Auto) 800 (0-900) /uL Eos # (Auto) 400 (0-450) /uL Baso # (Auto) 100 (0-100) /uL PT 11.6 (10.1-12.7) SECONDS INR 1.0 (0.9-1.3) APTT 32 (26.4-36.2) SECONDS Sodium 141 (137-145) mmol/L Potassium 4.2 (3.4-5.1) mmol/L Chloride 102 (98-107) mmol/L Carbon Dioxide 28 (22-32) mmol/L BUN 17 (9-20) mg/dL Creatinine 0.90 (0.66-1.25) mg/dL Estimated GFR > 60.0 (>60) mL/min BUN/Creatinine Ratio 18.9 (6-22) Glucose 164 H (70-100) mg/dL Calcium 9.5 (8.4-10.2) mg/dL Total Bilirubin 0.9 (0.2-1.3) mg/dL AST 26 (17-59) IU/L ALT 43 (21-72) IU/L Alkaline Phosphatase 86 (38-126) U/L Total Protein 7.9 (6.3-8.2) g/dL Albumin 4.9 (3.5-5.0) g/dL Globulin 3.0 (1.7-4.1) g/dL Albumin/Globulin Ratio 1.6 (1.0-2.8) Lipase 61 (23-300) U/L Point of care testing: Urine Dip Bedside Urine Glucose Negative Bedside Urine Bilirubin - Negative Bedside Urine Ketone +/- 5 Urine Specific [place] 1.010 Bedside Urine Occult Blood - Negative Bedside Urine pH 6.5 Bedside Urine Protein - Negative Bedside Urine Urobilinogen +/- 1mg Bedside Urine Nitrite - Negative Bedside Urine Leukocytes - Negative Esterase Discharge Plan Departure Patient Disposition: General Acute Hospital Clinical Impression: Small bowel obstruction Discharge Date/Time: 09/02/18 02:43 Interventions: ED Discharge Assessment Last Done: 09/02/18 02:05 Prescriptions: No Action alprazolam 1 mg tablet 1 mg PO Q 8H PRN (Reason: anxiety) Qty: 30 RF: 0 metoprolol succinate [Toprol XL] 25 mg tablet extended release 24 hr 25 mg PO QAM Qty: 90 RF: 3 albuterol sulfate 2.5 MG/3 ML solution for nebulization 3 ml INH X1 Qty: 100 RF: 3 albuterol sulfate [Ventolin HFA] 90 MCG/PUFF HFA aerosol inhaler 2 puff INH QIDP PRNQty: 1 RF: 5 cyclobenzaprine 10 MG tablet 10 mg PO HSP PRNQty: 30 RF: 0 Lancets QDAY Qty: 100 RF: 0 Test Strips - Freestyle QDAY Qty: 100 RF: 0 sertraline 100 mg tablet 100 mg PO QDAY Qty: 90 RF: 0 Referrals: Carline Renteria DO [Primary Care Provider] - <Dominick Lackey DO - Last Filed: 09/02/18 06:53> Cosign ED Attending Mary Jo Attestation: I was immediately available in the department for consultation. Documentation has been reviewed. I agree with assessment and plan.
--- NOTE | 2018-09-01 23:50 | DI.RAD.S_ITS ---
PROCEDURE: XR CHEST 1V INDICATIONS: post NGT insertion TECHNIQUE: One view of the chest was acquired. COMPARISON: None. FINDINGS: Surgical changes and devices: None. Lungs and pleura: Lungs are clear. No pleural effusions or pneumothorax. Mediastinum: Mediastinal contours appear normal. Heart size is normal. Bones and chest wall: No suspicious bony lesions. Overlying soft tissues appear unremarkable. IMPRESSION: NG tube tip projects to the stomach. Dictated by: Alvaro Morris M.D. on 09/02/2018 at 9:04 Approved by: Alvaro Morris M.D. on 09/02/2018 at 9:04
[2018-09-02] MEDS: HYDROMORPHONE 1 MG INJ 0.5 MG IV ×3 (00:01→02:33)
[2018-09-02] MEDS: ONDANSETRON 4 MG/2 ML INJ IV (00:04)
[2018-09-02 00:58] VITALS: BP 144/95; PULSE 101; RESP 18; O2SAT 95
[2018-09-02 01:30] VITALS: BP 129/88; PULSE 111; RESP 16; O2SAT 95
[2018-09-02 02:15] VITALS: BP 130/89; PULSE 109; RESP 16; O2SAT 97
== END 2018-09-02 02:43 | disposition short-term general hospital (02) ==
PROVIDERS: Emergency Provider Emergency Medicine; PCP Family Medicine
DX: K56.609 Unspecified intestinal obstruction, unspecified as to partial versus complete obstruction (principal)
CPT/HCPCS: 36591; 71045; 74022; 74177; 80053; 81003; 83690; 85025; 85610; 85730; 96361; 96374; 96375; 96376; 99283; 99284; J1170; J2270; J2405; Q9967

== ENCOUNTER → 2018-12-13 15:18 | Outpatient (CLI) | payer OTHER, SELFPAY ==
[2018-12-13 15:53] LABS: Hematocrit 43.4 % (41-53); Hemoglobin 15.2 g/dL (13.5-17.5); Mean Corpuscular Hemoglobin 28.5 PG (26-34); Mean Corpuscular Volume 81.4 fL (80-100); Platelet Count 196 X10^3/uL (150-400); Red Blood Cell Count 5.33 X10^6/uL (4.5-5.9); Red Cell Distribution Width 15.2 % (11.6-14.8); White Blood Cell Count 7.3 X10^3/uL (4.5-11.0)
[2018-12-13 16:29] LABS: BUN Creatinine Ratio 13.3 (6-22); Blood Urea Nitrogen 20 mg/dL (9-20); Calcium 9.2 mg/dL (8.4-10.2); Carbon Dioxide 27 mmol/L (22-32); Chloride 106 mmol/L (98-107); Creatinine Urine Random 135.1 mg/dL; Estimated Glomerular Filt Rate 49.7 mL/min (>60); Glucose 98 mg/dL (70-100); HEMOLYSIS < 15 (0-50); Potassium 4.4 mmol/L (3.4-5.1); Protein (Total) Urine Random 8 mg/dL (0-12); Protein Creatinine Ratio Urine 0.05 GRAM/24H; Sodium 143 mmol/L (137-145)
== END ==
PROVIDERS: PCP Family Medicine; Visit Provider Student in an Organized Health Care Education/Training Program
DX: N05.9 Unspecified nephritic syndrome with unspecified morphologic changes (principal); R80.9 Proteinuria, unspecified; D70.9 Neutropenia, unspecified; D63.1 Anemia in chronic kidney disease
CPT/HCPCS: 36415; 80048; 82570; 84156; 85027

== ENCOUNTER → 2018-12-27 09:07 | Outpatient (CLI) | payer OTHER, SELFPAY ==
--- NOTE | 2018-12-27 09:08 | DI.MRI.S_ITS ---
PROCEDURE: MR LUMBAR SPINE WO CON INDICATIONS: Low back pain TECHNIQUE: Noncontrast sagittal T1 spin echo and T2 fast echo, sagittal STIR, axial T1 and T2 fast spin echo through the lumbar spine. In cases with scoliosis, additional coronal T2 fast spin echo may be performed. COMPARISON: None. FINDINGS: Image quality: Excellent. Alignment and Curvature: There is normal bony alignment. Bone Marrow: Marrow is of normal overall signal. No acute vertebral body compression fractures. Spinal Cord: Conus medullaris terminates at the T12 level. Visualized cord demonstrates normal signal and size. Paraspinous Soft Tissues: No paravertebral masses. The right kidney is not visualized and may be surgically absent. L1-L2: Moderate disc desiccation and height loss. No canal stenosis. No foraminal stenosis. L2-L3: Moderate disc desiccation and height loss. Broad-based disc bulge. Mild facet ligamentum flavum hypertrophy. No canal stenosis. No neural foraminal narrowing. L3-L4: Mild disc desiccation and height loss. Moderate facet ligamentum flavum hypertrophy. No canal stenosis. No neural foraminal narrowing. L4-L5: Moderate disc desiccation and height loss. Broad-based disc bulge. Moderate facet ligamentum flavum hypertrophy. Mild canal stenosis. There is a 0.6 x 0.5 x 1.4 cm left paracentral disc protrusion which narrows the left lateral recess (series 8, image 27 and series 7, image 10). L5-S1: Mild disc desiccation and height loss. Broad-based disc bulge. Mild bilateral neural foraminal narrowing. IMPRESSION: 1. L4-L5 left paracentral disc protrusion which narrows left lateral recess as above. 2. Mild to moderate disc desiccation and height loss throughout the lumbar spine. 3. Mild multilevel broad-based disc bulges with resultant mild canal stenosis at L4-5. Dictated by: Alcira Vasques M.D. on 12/27/2018 at 9:28 Approved by: Alcira Vasques M.D. on 12/27/2018 at 9:37
== END ==
PROVIDERS: PCP Family Medicine; Visit Provider Family Medicine
DX: M54.5 Low back pain (principal); M48.061 Spinal stenosis, lumbar region without neurogenic claudication; M48.07 Spinal stenosis, lumbosacral region; M51.36 Other intervertebral disc degeneration, lumbar region; M51.37 Other intervertebral disc degeneration, lumbosacral region; R29.890 Loss of height
CPT/HCPCS: 72148

== ENCOUNTER 2019-02-20 08:19 | Outpatient (CLI) | payer OTHER, SELFPAY ==
[2019-02-20] VITALS (8 sets, daily range): BP systolic 110–130; BP diastolic 70–93; PULSE 78–89; RESP 16–18; TEMP 36.3; O2SAT 96–98
--- NOTE | 2019-02-20 08:20 | DI.RAD.S_ITS ---
PROCEDURE: PAIN L/SI FACET INJ/BLK 1STL INDICATIONS: SPONDYLOSIS FINDINGS: Fluoroscopic spot filming was performed to verify placement of spinal needles at the left-sided L4-5 and L5-S1 facet joint regions level(s), as labeled on the films. Appropriate location(s) of the needle tip(s) was confirmed by injection of iodinated contrast. IMPRESSION: Successful left-sided facet localization as discussed above for steroid injection. Dictated by: Kenan Goldberg M.D. on 02/20/2019 at 10:58 Approved by: Kenan Goldberg M.D. on 02/20/2019 at 10:58
[2019-02-20] MEDS: MIDAZOLAM 5 MG/5 ML VIAL IV (09:27)
[2019-02-20] MEDS: LIDOCAINE 1% 20 ML 10 ML INJ (09:33)
[2019-02-20] MEDS: BUPIVACAINE 0.5% (PF) VIAL 5 ML INJ (09:33)
[2019-02-20] MEDS: BETAMETHASONE 30 MG/5 ML MDV 12 MG INJ (09:33)
[2019-02-20] MEDS: IOPAMIDOL 15 ML VIAL 3 ML INJ (09:33)
--- NOTE | 2019-02-20 09:39 | PC.NURSE ---
ASSISTING PT OFF TABLE AND TRANSPORTING TO POST PROC AREA IN STABLE CONDITION. PASSING CARE OFF TO ACACIA Lakhani RN.
--- NOTE | 2019-02-20 09:43 | P.PCN_ITS ---
Procedures Date/Time Date of procedure: 02/20/19 Time of procedure: 09:43 General Procedure description: PREOP DIAGNOSIS 1. FACET ARTHROPATHY 2. AXIAL LBP 3. MULTILEVEL DDD POST OP DIAGNOSIS 1. FACET ARTHROPATHY 2. AXIAL LBP 3. MULTILEVEL DDD PROCEDURES 1. FLUORSCOPICALLY GUIDED CONTRAST CONTROLLED FACET JOINT INJECTIONS BILATERAL L4/5, L5/S1 PHYSICIAN: Justus Hart, DO INDICATIONS Adriano is referred by Dr. Renteria for treatment of Axial LBP FINDINGS Multilevel Facet Arthropathy with Clinically significant axial LBP DESCRIPTION OF PROCEDURE Fluoroscopically guided, contrast-controlled bilateral L4/5, L5/S1 facet joint injections. Following review of allergy and review of potential side effects and complications, including, but not necessarily limited to, infection, allergic reaction, local tissue breakdown, stroke, temporary or permanent nerve injury, paralysis, and possible , the patient indicated that the patient understood and agreed to proceed. An informed consent document was signed by the patient, witnessed by a nurse, and placed in the patient's chart. Additionally, other treatment options including medications, modalities, and physical therapy were reviewed with the patient. After review of previous anaesthesic history and IV conscious sedation the patient was deemed safe to proceed with todays procedure with IV conscious sedation as ASA class II designation. Safety time-out was performed to confirm patient ID, procedure to be performed and site of procedure. IV sedation was accomplished with a combination of 4mg of Versed was administered by the RN after DO order, titrated to patient comfort during the course of the procedure while the patient remained responsive to all verbal commands In the prone position, following sterile prep and drape of the lumbar region, the posterior aspect of the L4/5, L5/S1 facet joints were identified fluoroscopically. The skin was anesthetized via a 25-gauge 1.5-inch needle with 1% lidocaine solution into the corresponding facet joints. At this point, a 22- gauge 3.5-inch spinal needle was atraumatically introduced and advanced under fluoroscopic guidance into the corresponding facet joints. Following negative aspiration, injections of approximately 0.2-cc of Isovue 200 confirmed interarticular placement without vascular uptake. The identical procedure was then performed at the L4/5, L5/S1 facet joints on the left. Radiological data, including multiple fluoroscopic views of the lumbosacral spine, reveal a spinal needle at the L4/5, L5/S1 facet joints bilaterally. Subsequent views show flow of contrast material both superiorly and inferiorly within the joint space without vascular or intrathecal uptake. At this point, a total of 0.5 cc including a mixture of 0.25cc Marcaine and 0.25cc betamethasone was injected without complication into each of the corresponding facet joints. The patient tolerated the procedure well without signs or symptoms of complications prior to transfer to the recovery area continued monitoring without incident. The patient was then transferred to the recovery area where they were observed for an appropriate period of time after the injection. The patient reported a VAS score of 7 prior to the procedure and a post- procedure VAS of 0. Total Fluoroscopy Time: 20.3 seconds Total Conscious Sedation Time: 24min POST OP INSTRUCTIONS The patient was provided a Pain Log to continue to record their response to the target-specific procedure prior to follow-up visit with their referring physician. Additionally, specific post-injection care instructions and a contact number to our office were provided if concerns arise regarding possible complications associated with the procedure are suspected. Justus Hart DO Complications: none
--- NOTE | 2019-02-20 11:37 | PC.NURSE ---
0944 arrived via w/c post procedure, able to transfer self from w/c to recliner without assist, resuming care from etienne martínez. snacks and drinks provided, and tolerated.
== END 2019-02-20 10:05 | disposition home or self-care (01) ==
LOC: RAD 08:19
PROVIDERS: PCP Family Medicine; Visit Provider Physical Medicine & Rehabilitation
DX: M47.817 Spondylosis without myelopathy or radiculopathy, lumbosacral region (principal); M47.816 Spondylosis without myelopathy or radiculopathy, lumbar region; M54.5 Low back pain; M51.36 Other intervertebral disc degeneration, lumbar region; M51.37 Other intervertebral disc degeneration, lumbosacral region
CPT/HCPCS: 64493; 64494; 99152; J0702; J2250; J3010

== ENCOUNTER → 2019-03-09 10:23 | Outpatient (CLI) | payer OTHER, SELFPAY ==
[2019-03-09 10:30] LABS: WBC Urine None Seen (0-5/HPF)
[2019-03-09 11:00] LABS: Appearance Urine UA CLEAR; Bilirubin Urine UA NEGATIVE (NEGATIVE); Color Urine UA YELLOW; Glucose Urine UA 3+ g/dL (Negative); Ketones Urine UA NEGATIVE (NEGATIVE); Leukocyte Esterase Urine UA NEGATIVE (NEGATIVE); Nitrite Urine UA NEGATIVE (Negative); Occult Blood Urine UA TRACE-LYSED (Negative); Protein Urine UA NEGATIVE (Negative); Urobilinogen Urine UA 0.2 E.U./dL (0.2)
[2019-03-09 11:15] LABS: Hematocrit 43.7 % (41-53); Hemoglobin 15.4 g/dL (13.5-17.5)
[2019-03-09 11:17] LABS: Bacteria Urine Occasional (0-1); RBC Urine 0-1/HPF (0-5/HPF)
[2019-03-09 11:40] LABS: BUN Creatinine Ratio 13.3 (6-22); Blood Urea Nitrogen 16 mg/dL (9-20); Calcium 8.9 mg/dL (8.4-10.2); Carbon Dioxide 23 mmol/L (22-32); Chloride 103 mmol/L (98-107); Estimated Glomerular Filt Rate > 60.0 mL/min (>60); Glucose 416 mg/dL (70-100); HEMOLYSIS < 15 (0-50); Phosphorous 3.5 mg/dL (2.5-4.5); Potassium 4.3 mmol/L (3.4-5.1); Sodium 136 mmol/L (137-145)
[2019-03-09 11:42] LABS: Creatinine Urine Random 64.6 mg/dL; Protein (Total) Urine Random 12 mg/dL (0-12); Protein Creatinine Ratio Urine 0.18 GRAM/24H
[2019-03-13 14:22] LABS: Parathyroid Hormone Int 57 pg/mL (14-64)
== END ==
PROVIDERS: PCP Family Medicine; Visit Provider Student in an Organized Health Care Education/Training Program
DX: N05.9 Unspecified nephritic syndrome with unspecified morphologic changes (principal); D64.9 Anemia, unspecified; E83.30 Disorder of phosphorus metabolism, unspecified; N25.81 Secondary hyperparathyroidism of renal origin; N30.00 Acute cystitis without hematuria; R80.9 Proteinuria, unspecified
CPT/HCPCS: 36415; 80048; 81001; 82570; 83970; 84100; 84156; 85014; 85018; 87086

== ENCOUNTER → 2019-04-03 07:45 | Outpatient (CLI) | payer OTHER, SELFPAY ==
[2019-04-03 08:59] LABS: Hemoglobin A1C% w Est Avg Glu 7.9 % (4.0-6.0)
[2019-04-03 09:01] LABS: Glucose 237 mg/dL (70-100)
== END ==
PROVIDERS: PCP Family Medicine; Visit Provider Family Medicine
DX: R73.9 Hyperglycemia, unspecified (principal)
CPT/HCPCS: 36415; 82947; 83036

== ENCOUNTER → 2019-04-25 07:04 | Outpatient (CLI) | payer OTHER, SELFPAY ==
[2019-04-25 07:13] LABS: RBC Urine None Seen (0-5/HPF)
[2019-04-25 08:38] LABS: Hematocrit 45.5 % (41-53)
[2019-04-25 08:42] LABS: Appearance Urine UA CLEAR; Bilirubin Urine UA NEGATIVE (NEGATIVE); Color Urine UA YELLOW; Glucose Urine UA 1+ g/dL (Negative); Ketones Urine UA NEGATIVE (NEGATIVE); Leukocyte Esterase Urine UA NEGATIVE (NEGATIVE); Nitrite Urine UA NEGATIVE (Negative); Occult Blood Urine UA NEGATIVE (Negative); Protein Urine UA NEGATIVE (Negative); Urobilinogen Urine UA 0.2 E.U./dL (0.2); pH Urine UA 5.5 (4.5-8.0)
[2019-04-25 08:53] LABS: BUN Creatinine Ratio 13.1 (6-22); Blood Urea Nitrogen 17 mg/dL (9-20); Calcium 9.5 mg/dL (8.4-10.2); Carbon Dioxide 30 mmol/L (22-32); Chloride 101 mmol/L (98-107); Estimated Glomerular Filt Rate 58.4 mL/min (>60); Glucose 197 mg/dL (70-100); HEMOLYSIS < 15 (0-50); Phosphorous 3.7 mg/dL (2.5-4.5); Potassium 4.6 mmol/L (3.4-5.1); Sodium 140 mmol/L (137-145); Squamous Epithelial Cell Urine 0-1 /HPF (0-5/HPF); WBC Urine 0-1/HPF (0-5/HPF)
[2019-04-25 08:54] LABS: Bacteria Urine Occasional (0-1); Culture Indicated Urine Cult Not Indicated
[2019-04-25 08:55] LABS: Creatinine Urine Random 165.6 mg/dL; Protein (Total) Urine Random 8 mg/dL (0-12); Protein Creatinine Ratio Urine 0.04 GRAM/24H
[2019-04-28 16:13] LABS: Parathyroid Hormone Int 36 pg/mL (14-64)
== END ==
PROVIDERS: PCP Family Medicine; Visit Provider Student in an Organized Health Care Education/Training Program
DX: N05.9 Unspecified nephritic syndrome with unspecified morphologic changes (principal); D64.9 Anemia, unspecified; E83.30 Disorder of phosphorus metabolism, unspecified; N25.81 Secondary hyperparathyroidism of renal origin; N30.00 Acute cystitis without hematuria; R80.9 Proteinuria, unspecified
CPT/HCPCS: 36415; 80048; 81001; 82570; 83970; 84100; 84156; 85014; 85018; 87077; 87086; 87147

== ENCOUNTER 2019-05-08 15:35 | Outpatient (CLI) | payer BC, OTHER, SELFPAY ==
[2019-05-08] VITALS (8 sets, daily range): BP systolic 110–153; BP diastolic 56–90; PULSE 81–90; RESP 16–18; O2SAT 95–97
--- NOTE | 2019-05-08 15:36 | DI.RAD.S_ITS ---
PROCEDURE: PAIN L/S TRANSFORAMINAL INJECT INDICATIONS: RADICULOPATHY FINDINGS: Fluoroscopic spot filming was performed to verify placement of spinal needles at the L4-L5 level(s), as labeled on the films. Appropriate location(s) of the needle tip(s) was confirmed by injection of iodinated contrast. IMPRESSION: Fluoroscopy for pain management. Dictated by: Fang Giang M.D. on 05/10/2019 at 8:53 Approved by: Fang Giang M.D. on 05/10/2019 at 8:53
[2019-05-08] MEDS: MIDAZOLAM 5 MG/5 ML VIAL IV (16:00)
[2019-05-08] MEDS: fentaNYL 100 MCG/2 ML INJ 50 MCG IV (16:00)
[2019-05-08] MEDS: DEXAMETHASONE 10 MG/ML VIAL 20 MG INJ (16:06)
[2019-05-08] MEDS: IOPAMIDOL 15 ML VIAL 3 ML INJ (16:06)
[2019-05-08] MEDS: BUPIVACAINE 0.25% (PF) VIAL 2 ML INJ (16:06)
[2019-05-08] MEDS: BETAMETHASONE 30 MG/5 ML MDV 6 MG INJ (16:06)
--- NOTE | 2019-05-08 16:11 | PC.NURSE ---
ASSISTING PT OFF TABLE AND TRANSPORTING TO POST PROC AREA IN STABLE CONDITION. PASSING RN CARE OF PT OFF TO ALESSANDRO Ely RN.
--- NOTE | 2019-05-08 16:18 | PM.PROC.1 ---
Procedures Date/Time Date of procedure: 05/08/19 Time of procedure: 16:18 General Procedure description: PREOP DIAGNOSIS 1. FORMAINAL STENOSIS WITH LE SYMPTOMS POST OP DIAGNOSIS 1. FORMAINAL STENOSIS WITH LE SYMPTOMS PROCEDURES 1. FLUOROSCOPICALLY GUIDED CONTRAST CONTROLLED TRANSFORAMINAL EPIDURAL STEROID INJECTION - LEFT L4/5 PHYSICIAN: Justus Hart DO INDICATIONS: Adriano is referred by Dr. Renteria for treatment of Foraminal Stenosis with Left LE Symptoms FINDINGS Foraminal Nerve Root Compression secondary to disc disease and facet hypertrophy DESCRIPTION OF PROCEDURE: Following review of allergy and review of potential side effects and complications, including, but not necessarily limited to, infection, allergic reaction, local tissue breakdown, stroke, temporary or permanent nerve injury, paralysis, and possible , the patient indicated that the patient understood and agreed to proceed. An informed consent document was signed by the patient, witnessed by a nurse, and placed in the patient's chart. Additionally, other treatment options including medications, modalities, and physical therapy were reviewed with the patient. After review of previous anaesthesic history and IV conscious sedation the patient was deemed safe to proceed with todays procedure with IV conscious sedation as ASA class II designation. Safety time-out was performed to confirm patient ID, procedure to be performed and site of procedure. IV sedation was accomplished with a combination of 3mg of Versed and 50mcg of Fentanyl administered by the RN after DO order, titrated to patient comfort during the course of the procedure while the patient remained responsive to all verbal commands In the prone position following sterile prep and drape of the lumbar region, the left L4/5 posterior neuroforamen was identified fluoroscopically. The skin was anesthetized via a 25-gauge 1.5-inch needle with 1% lidocaine solution. At this point, a 25-gauge 3.5-inch spinal needle was atraumatically introduced and advanced under fluoroscopic guidance through the posterior left L4/5 neuroforamen to approximately the anterior aspect of the canal. Depth was confirmed on lateral view. Following negative aspiration, injection of approximately 1.5 cc of Isovue 200 under live fluoroscopy in the AP view confirmed excellent flow along the nerve root, into the epidural space without vascular or intrathecal uptake observed Radiological data, including multiple fluoroscopic views of the lumbosacral spine, reveal a spinal needle at the left L4/5 posterior neuroforamen. Subsequent views show flow of contrast material flowing superiorly and inferiorly along the nerve root confirming epidural flow. Subsequently, a test dose of 1.5 cc of 1% lidocaine solution was administered and patient was observed for two minutes for signs or symptoms of complications, including abdominal pain, shortness of breath, bilateral upper or lower extremity weakness, nausea and vomiting, prior to steroid injection. At this point, a total of 3cc or 20mg of dexamethasone and 6mg of betamethasone was injected without incident. The procedure tolerated the procedure well without signs or symptoms of complications prior to transfer to the recovery area continued monitoring without incident. The patient was then transferred to the recovery area where they were observed for an appropriate time after the injection. The patient reported a VAS score of 7 prior to the procedure and a post-procedure VAS of 0. Total Fluoroscopy Time: 20.9 seconds Total Conscious Sedation Time: 24min POST OP INSTRUCTIONS The patient was provided a Pain Log to continue to record their response to the target-specific procedure prior to follow-up visit with their referring physician. Additionally, specific post-injection care instructions and a contact number to our office were provided if concerns arise regarding possible complications associated with the procedure are suspected. Justus Hart DO Complications: none
--- NOTE | 2019-05-08 16:43 | PC.NURSE ---
Post procedure note: Arrived for post procedure monitoring. Awake and alert. Transferred from w/c to recliner independently. VSS, O2 sat WNL on RA. Pain level 0/10. No unusual numbness or tingling to lower extremities. Discharged to home with and son. Ambulated to car. Gait steady.
== END 2019-05-08 16:37 | disposition home or self-care (01) ==
LOC: RAD 15:35
PROVIDERS: PCP Family Medicine; Visit Provider Physical Medicine & Rehabilitation
DX: M48.061 Spinal stenosis, lumbar region without neurogenic claudication (principal); M51.16 Intervertebral disc disorders with radiculopathy, lumbar region
CPT/HCPCS: 64483; 99152; J0702; J1100; J2250; J3010

== ENCOUNTER → 2019-06-22 09:05 | Outpatient (CLI) | payer BC, OTHER, SELFPAY ==
[2019-06-22 10:19] LABS: Alanine Aminotransferase 21 IU/L (<50); Albumin 4.3 g/dL (3.5-5.0); Albumin Globulin Ratio 1.8 (1.0-2.8); Alkaline Phosphatase 86 U/L (38-126); Aspartate Aminotransferase 19 IU/L (17-59); BUN Creatinine Ratio 15.8 (6-22); Bilirubin Total 0.7 mg/dL (0.2-1.3); Blood Urea Nitrogen 19 mg/dL (9-20); Calcium 9.2 mg/dL (8.4-10.2); Carbon Dioxide 27 mmol/L (22-32); Chloride 105 mmol/L (98-107); Cholesterol 172 mg/dL (140-199); Estimated Glomerular Filt Rate > 60.0 mL/min (>60); Globulin 2.4 g/dL (1.7-4.1); Glucose 128 mg/dL (70-100); HDL Cholesterol 32 mg/dL (40-60); HEMOLYSIS < 15 (0-50); LDL Cholesterol Calculated 114 mg/dL (<100); Potassium 4.2 mmol/L (3.4-5.1); Sodium 141 mmol/L (137-145); Total Protein 6.7 g/dL (6.3-8.2); Triglycerides 128 mg/dL (35-150)
== END ==
PROVIDERS: PCP Family Medicine; Visit Provider Family Medicine
DX: Z13.220 Encounter for screening for lipoid disorders (principal); E11.9 Type 2 diabetes mellitus without complications; N18.9 Chronic kidney disease, unspecified; R00.0 Tachycardia, unspecified
CPT/HCPCS: 36415; 80053; 80061; 83036

== ENCOUNTER → 2019-06-25 13:53 | Outpatient (CLI) | payer BC, OTHER, SELFPAY ==
--- NOTE | 2019-06-25 14:55 | PM.TREADMILL ---
Cardiac Stress Test Report Referral & Results Date Patient Seen: 06/25/19 Requesting provider: Carline Renteria Indication: Tachycardia Rest ECG: Unremarkable Procedure Note: After both written and verbal informed consent the patient had an IV started by the diagnostic imaging RN and then was hooked up to the treadmill monitoring system. The patient was placed on the treadmill at 1 mile an hour with no elevation and was then injected with the Sasha scan material. The Cardiolite was then immediately administered. The patient spent an additional 2-3 minutes on the treadmill before being returned to the [facility] in the supine position. The patient had a normal response to all infused materials. Patient quickly became tachycardic with infusion of the above materials. His peak heart rate it 150+ without any obvious symptoms or side effects. He returned to normal baseline at cessation of activity on the treadmill Impression: Please see perfusion imaging report for details regarding possible ischemia Please note: Actual ECG tracings can be found in the PACS system.
--- NOTE | 2019-06-26 19:05 | DI.NM.S_ITS ---
DATE OF SERVICE: 06/25/2019 PROCEDURE PERFORMED: Pharmacologic vasodilator stress and rest myocardial perfusion study with gating to assess ejection fraction and regional wall motion. ORDERING PROVIDER: Dr. Carline Renteria. INDICATIONS: The patient is a 49-year-old hypertensive diabetic male with an abnormal ECG. PHARMACOLOGIC STRESS:: Per protocol. 0.4 mg of regadenoson was infused, augmented by walking on a treadmill. With this, he had a brisk chronotropic response with a resting heart rate of 83 bpm, increasing to a maximum of 152 bpm (89 percent of his predicted maximum). He had a normal blood pressure response. He had no chest discomfort. His resting ECG is normal and there are no significant ischemic changes with stress. There were no arrhythmias seen beyond sinus tachycardia. Per protocol, 25.2 mCi of technetium-99m Myoview was injected and he was imaged 15 minutes later using a gated SPECT acquisition protocol. He returned the following day and was reinjected with an additional 22.1 mCi of technetium-99m Myoview and was imaged 30 minutes later, again, using a gated SPECT acquisition algorithm. FINDINGS: RAW DATA:: There is fairly poor myocardial tracer uptake with significant hepatic and splenic uptake that makes the interpretation somewhat challenging. There is clear diaphragmatic attenuation noted. Lung-heart ratio is normal at 0.35 with a normal TID ratio of 0.87. QUANTITATED GATED SPECT:: Post-stress ejection fraction is estimated at 71% without any regional wall motion abnormality and, specifically, the inferior wall grossly appears to have normal contractility. The resting ejection fraction is 63% with an end-diastolic volume of 116 mL. MYOCARDIAL PERFUSION IMAGING:: Post-stress supine images are of marginal quality but suggest a mild perfusion defect throughout the inferior wall in a pattern that would be consistent with diaphragmatic attenuation, supported by its complete resolution on the prone images, revealing a completely normal perfusion pattern. The resting images show an identical perfusion pattern compared to the post-stress supine images without any areas of improvement. IMPRESSION: 1. Probable normal myocardial perfusion study. 2. Mild fixed inferior wall perfusion defect that completely resolves on prone imaging, most consistent with diaphragmatic attenuation artifact. There is no compelling evidence for any myocardial ischemia or previous myocardial infarction. 3. Normal left ventricular systolic function without any regional wall motion abnormality. 4. No angina or ECG evidence of ischemia with pharmacologic vasodilator stress. Adriano Pandey - RS/fn/courtney doc#: [id number]/job#: [id number] dd: 06/26/2019 16:45:00 dt: 06/26/2019 18:16:00 DICTATING MD/COPIES TO: Justus Salazar MD; Carline Renteria, DO COPIES MNE: SOLOMON;
== END ==
PROVIDERS: PCP Family Medicine; Visit Provider Family Medicine
DX: R94.31 Abnormal electrocardiogram [ECG] [EKG] (principal); R00.0 Tachycardia, unspecified; E11.9 Type 2 diabetes mellitus without complications; I10 Essential (primary) hypertension
CPT/HCPCS: 78452; 93016; 93017; 93018; A9502; J2785

== ENCOUNTER 2019-06-26 08:17 | Outpatient (CLI) | payer BC, OTHER, SELFPAY ==
[2019-06-26] VITALS (9 sets, daily range): BP systolic 110–128; BP diastolic 64–83; PULSE 67–85; RESP 16; TEMP 36.7; O2SAT 94–97
--- NOTE | 2019-06-26 08:20 | DI.RAD.S_ITS ---
PROCEDURE: PAIN L/S FACET INJ/BLK 1ST [id number] COMPARISON: None. INDICATIONS: SPONDYLOSIS FINDINGS: Fluoroscopic spot filming was performed to verify placement of spinal needles at the L4, L5, S1 level(s), as labeled on the films. Appropriate location(s) of the needle tip(s) was confirmed by injection of iodinated contrast. Dictated by: Torres Ruth M.D. on 06/26/2019 at 11:33 Approved by: Torres Ruth M.D. on 06/26/2019 at 11:34
[2019-06-26] MEDS: fentaNYL 100 MCG/2 ML INJ 50 MCG IV (09:54)
[2019-06-26] MEDS: MIDAZOLAM 5 MG/5 ML VIAL IV (09:54)
[2019-06-26] MEDS: IOPAMIDOL 15 ML VIAL 3 ML INJ (10:02)
[2019-06-26] MEDS: BUPIVACAINE 0.5% (PF) VIAL 5 ML INJ (10:02)
[2019-06-26] MEDS: LIDOCAINE 1% 20 ML 10 ML INJ (10:02)
--- NOTE | 2019-06-26 10:08 | PC.NURSE ---
ASSISTING PT OFF TABLE AND TRANSPORTING TO POST PROC AREA IN STABLE CONDITION. PASSING RN CARE OF PT OFF TO ALESSANDRO Ely RN.
--- NOTE | 2019-06-26 10:15 | PM.PROC.1 ---
Procedures Date/Time Date of procedure: 06/26/19 Time of procedure: 10:15 General Procedure description: Procedure description: 1. FACET ARTHROPATHY PROCEDURES: 1. BILATERAL- L4, L5 and S1 DIAGNOSTIC MB BLOCKS with SA Anesthetic PHYSICIAN: Justus Hart DO CAROLINA Oh is referred by for treatment of Bilateral Axial LBP. DESCRIPTION OF PROCEDURE Fluoroscopically guided, contrast-controlled bilateral L4, L5 and S1 medial branch blocks with 0.5cc of 0.1% Lidocaine. Following review of allergy and review of potential side effects and complications, including, but not necessarily limited to, infection, allergic reaction, local tissue breakdown, nerve injury, paralysis, stroke and possible , the patient indicated that the patient understood and agreed to proceed. An informed consent document was signed by the patient, witnessed by a nurse, and placed in the patient's chart. After review of previous anaesthesic history and IV conscious sedation the patient was deemed safe to proceed with todays procedure with IV conscious sedation as ASA class II designation. Safety time-out was performed to confirm patient ID, procedure to be performed and site of procedure. IV sedation was accomplished with a combination of 3mg of Versed and 50mcg of Fentanyl was administered by the RN after DO order, titrated to patient comfort during the course of the procedure while the patient remained responsive to all verbal commands In the prone position, following sterile prep and drape of the lumbar region, the right L4, L5 and S1 anatomical location of the medial branch of the dorsal ramus was identified fluoroscopically. Subsequently an anesthetic skin wheal using 1% lidocaine solution was initiated at each of the anatomical spots. Subsequently then a 22-gauge 3.5-inch spinal needle was atraumatically introduced and advanced under fluoroscopic guidance at each of the corresponding sites at the right L4, L5 and S1 MB. After negative aspiration, 0.2cc of Isovue 200 was injected, confirming placement without vascular or intrathecal uptake. Subsequently then 0.5cc of 0.1% Lidocaine solution was injected at each of the corresponding sites at the right L4, L5 and S1 medial branch locations. The identical procedure was replicated on the left. The patient tolerated the procedure well without signs or symptoms of complications prior to transfer to the recovery area continued monitoring without incident. Post-procedure, the patient was monitored initiating provocative activities to measure the amount of relief from block of the facetogenic pain. The patient reported a VAS of 8 prior to the procedure and a post-procedure VAS of 0. It has been a pleasure to assist in the diagnostic and therapeutic care of your patient. Total Fluoroscopy Time: 13 seconds Total Conscious Sedation Time: 24min POST OP INSTRUCTIONS The patient was provided with a Pain Log to complete over the next several hours and subsequent days prior to the patient's follow up with the ordering physician. If the patient has telecine operator relief to the solution applied, then they may be a candidate for medial branch rhizotomy. The patient is aware, was provided, once again, with a Pain Log and will follow up with the referring physician for review and clinical correlation Justus Hart DO
--- NOTE | 2019-06-26 10:48 | PC.NURSE ---
Post procedure discharge note: Patient arrived at 1015. Awake and alert. Able to transfer from w/c to recliner independently. VSS on arrival. No complaints of pain. 0/10 pain level. Denied any unusual numbness or tingling to lower extremities. Handoff report received fromSeth Zavala RN. discharge instructions reviewed with good understanding. discharged to waiting area. IV saline lock left in right hand. Has nuc med appointment at 1100.
== END 2019-06-26 10:35 | disposition home or self-care (01) ==
LOC: RAD 08:20
PROVIDERS: PCP Family Medicine; Visit Provider Physical Medicine & Rehabilitation
DX: M47.817 Spondylosis without myelopathy or radiculopathy, lumbosacral region (principal); M47.816 Spondylosis without myelopathy or radiculopathy, lumbar region
CPT/HCPCS: 64493; 64494; 99152; J2250; J3010

== ENCOUNTER 2019-08-09 11:28 | Outpatient (CLI) | payer OTHER, SELFPAY ==
[2019-08-09] VITALS (11 sets, daily range): BP systolic 120–130; BP diastolic 72–97; PULSE 75–97; RESP 16–17; TEMP 36.2; O2SAT 97–99
--- NOTE | 2019-08-09 11:58 | DI.RAD.S_ITS ---
PROCEDURE: PAIN L/S MED/LAT N RFA BILAT INDICATIONS: SPONDYLOSIS FINDINGS: Fluoroscopic spot filming was performed to verify placement of spinal needles at the L4,L5,S1 level(s), as labeled on the films. Appropriate location(s) of the needle tip(s) was confirmed by injection of iodinated contrast. Dictated by: Torres Ruth M.D. on 08/09/2019 at 14:19 Approved by: Torres Ruth M.D. on 08/09/2019 at 14:24
[2019-08-09] MEDS: fentaNYL 100 MCG/2 ML INJ 50 MCG IV (12:23)
[2019-08-09] MEDS: MIDAZOLAM 5 MG/5 ML VIAL IV (12:25)
[2019-08-09] MEDS: LIDOCAINE 1% 20 ML 10 ML INJ (12:33)
[2019-08-09] MEDS: BUPIVACAINE 0.5% (PF) VIAL 2 ML INJ (12:33)
--- NOTE | 2019-08-09 12:57 | PC.NURSE ---
ASSISTING PT OFF TABLE AND TRANSPORTING TO POST PROC AREA IN STABLE CONDITION. PASSING RN CARE OF PT OFF TO JHOANA LAWRENCE.
--- NOTE | 2019-08-09 13:05 | P.PCN_ITS ---
Procedures Date/Time Date of procedure: 08/09/19 Time of procedure: 13:05 General Procedure description: PREOP DIAGNOSIS 1. RECALCITRANT FACET ARTHROPATHY, POST OP DIAGNOSIS 1. RECALCITRANT FACET ARTHROPATHY PROCEDURES 1. BILATERAL L4 AND L5 MEDIAL BRANCH RADIOFREQUENCY NEUROTOMY AND S1 DORSAL RAMUS BRANCH RADIOFREQUENCY NEUROTOMY, PHYSICIAN: Justus Hart DO INDICATIONS: Adriano is referred by for treatment of facet arthropathy. DESCRIPTION OF PROCEDURE Bilateral L4 and L5 medial branch radiofrequency neurotomy and bilateral S1 dorsal ramus radiofrequency neurotomy under fluoroscopy with conscious sedation. The patient is well known to this clinic having undergone previous facet injections with good but temporary relief. The patient has experienced appropriate, concordant relief with previous facet and median branch blocks but the patient's pain has been recalcitrant to further conservative measures. Therefore, based upon the patient's relief and persistent symptoms, the patient is considered an appropriate candidate for facet rhizotomy. All of the patient's questions regarding the risks versus benefits of the procedure, including, but not limited to, bleeding, infection, temporary as well as lasting nerve injury, paralysis, stroke, and , as well treatment alternatives were answered to satisfaction. After obtaining informed consent, denial of pertinent drug allergies, as well as being made aware of the potential risks of bleeding, infection, spinal cord trauma, paralysis, temporary and permanent nerve damage, seizure, stroke, and possible , the patient was brought to the fluoroscopy suite and positioned prone on the fluoroscopy table. The lumbar region was prepped with chlorhexadine and covered with a fenestrated drape in the usual sterile fashion. Appropriate monitors applied including pulse oximeter, pulse, and blood pressure for regular monitoring throughout the procedure. After review of previous anaesthesic history and IV conscious sedation the patient was deemed safe to proceed with todays procedure with IV conscious sedation as ASA class II designation. Safety time-out was performed to confirm patient ID, procedure to be performed and site of procedure. IV sedation was accomplished with a combination of 5mg of Versed and 50mcg of Fentanyl administered by the RN after DO order, titrated to patient comfort during the course of the procedure while the patient remained responsive to all verbal commands. After local infiltration using 1% lidocaine, under fluoroscopic guidance, a 10- cm RF insulated needle with a 10-mm active tip was positioned parallel to the junction of the right sacral ala and the superior articulating process where the S1 dorsal ramus resides. Needle placement was confirmed with motor stimulation of .5v on the right which produced local stimulation without radicular component. The stimulation was then increased to 1.5v with, once again, only local multifidus stimulation without radicular component. The needle was then r emoved and the identical procedure was performed along the length of the right L5 medial branch with motor stimulation at .7v on the right. The identical procedure was once again performed along the length of the right L4 medial branch with motor stimulation of .5v on the right. The medial branches were then anesthetised with 0.5% Marcaine. This was then followed by two discreet lesions performed at 80 degrees Celsius for 90 seconds each. The identical procedure was repeated on the left. The patient tolerated the procedure well without signs or symptoms of complica tions prior to transfer to the recovery area continued monitoring without incident. The patient was then transferred to the recovery area where they were observed for an appropriate period of time after the injection. The patient reported a VAS score of 9 prior to the procedure and a post-procedure VAS of 0. Total Fluoroscopy Time: 19 seconds Total Conscious Sedation Time: 34min POST OP INSTRUCTIONS The patient was provided a Pain Log to continue to record the patient's response to the target-specific procedure prior to the patient's follow-up visit with the referring physician. Additionally, specific post-injection care instructions and a contact number to our office were provided if concerns arise regarding possible complications associated with the procedure are suspected. Justus Hart DO Complications: none
--- NOTE | 2019-08-09 13:44 | PC.NURSE ---
late entry: pt arrived to post proc at approx 1509 via wc. Pt was able to transfer from wc to chair independently with only SB assist. Resumed monitoring from JHOANA Coyle
== END 2019-08-09 13:17 | disposition home or self-care (01) ==
PROVIDERS: PCP Family Medicine; Referring Provider Physical Medicine & Rehabilitation; Visit Provider Physical Medicine & Rehabilitation
DX: M47.817 Spondylosis without myelopathy or radiculopathy, lumbosacral region (principal); M47.816 Spondylosis without myelopathy or radiculopathy, lumbar region
CPT/HCPCS: 64635; 64636; 99152; 99153; J2250; J3010

== ENCOUNTER → 2019-12-05 12:52 | Outpatient (CLI) | payer OTHER, SELFPAY ==
[2019-12-05 13:35] LABS: Hematocrit 44.2 % (41-53); Hemoglobin 15.7 g/dL (13.5-17.5)
[2019-12-05 13:59] LABS: BUN Creatinine Ratio 15.9 (6-22); Blood Urea Nitrogen 21 mg/dL (9-20); Carbon Dioxide 26 mmol/L (22-32); Chloride 105 mmol/L (98-107); Estimated Glomerular Filt Rate 57.4 mL/min (>60); Glucose 193 mg/dL (70-100); HEMOLYSIS < 15 (0-50); Potassium 4.3 mmol/L (3.4-5.1); Sodium 138 mmol/L (137-145)
[2019-12-05 17:26] LABS: Creatinine Urine Random 133.1 mg/dL; Protein (Total) Urine Random 6 mg/dL (0-12); Protein Creatinine Ratio Urine 0.04 GRAM/24H
[2019-12-06 08:43] LABS: Parathyroid Hormone Int 39 pg/mL (15-65)
== END ==
PROVIDERS: PCP Family Medicine; Referring Provider Student in an Organized Health Care Education/Training Program; Visit Provider Student in an Organized Health Care Education/Training Program
DX: N05.9 Unspecified nephritic syndrome with unspecified morphologic changes (principal); D64.9 Anemia, unspecified; N25.81 Secondary hyperparathyroidism of renal origin; R80.9 Proteinuria, unspecified
CPT/HCPCS: 36415; 80048; 82570; 83970; 84156; 85014; 85018

== ENCOUNTER → 2020-01-19 08:58 | Outpatient (CLI) | payer OTHER, SELFPAY ==
[2020-01-20 21:07] LABS: COVID19 Sendout Not Detected (Not Detect)
== END ==
PROVIDERS: PCP Family Medicine; Visit Provider Physician Assistant
DX: Z11.59 Encounter for screening for other viral diseases (principal)
CPT/HCPCS: 87635

== ENCOUNTER 2020-01-22 13:38 | Outpatient (CLI) | payer OTHER, SELFPAY ==
[2020-01-22] VITALS (8 sets, daily range): BP systolic 121–143; BP diastolic 48–91; PULSE 80–92; RESP 10–19; TEMP 36.7; O2SAT 94–97
--- NOTE | 2020-01-22 13:41 | DI.RAD.S_ITS ---
PROCEDURE: PAIN L INTERLAMINAR/CAUDAL INJ INDICATIONS: SPONDYLOSIS COMPARISON: [facility], , PAIN L/S MED/LAT N RFA BILAT, 08/09/2019, 12:23. Fluoroscopic spot filming was performed to verify placement of a spinal needle at the L4-L5 level, as labeled on the films. Appropriate location of the needle tip was confirmed by injection of iodinated contrast. IMPRESSION: Intraprocedural examination within normal limits. Dictated by: Tone Aguilar M.D. on 01/22/2020 at 16:01 Approved by: Tone Aguilar M.D. on 01/22/2020 at 16:02
[2020-01-22] MEDS: MIDAZOLAM 5 MG/5 ML VIAL IV (14:37)
[2020-01-22] MEDS: fentaNYL 100 MCG/2 ML INJ 50 MCG IV (14:37)
[2020-01-22] MEDS: IOPAMIDOL 15 ML VIAL 3 ML INJ (14:45)
[2020-01-22] MEDS: BUPIVACAINE 0.25% (PF) VIAL 2 ML INJ (14:45)
[2020-01-22] MEDS: DEXAMETHASONE 10 MG/ML VIAL 20 MG INJ (14:45)
--- NOTE | 2020-01-22 14:48 | PM.PROC.IR.1 ---
Date/Time/Diagnoses Date of procedure: 01/22/20 Time of procedure: 14:48 Pre-procedure diagnosis: 1. HNP WITH RADICULAR FEATURES, 2. MULTILEVEL CENTRAL STENOSIS, Post-procedure diagnosis: same Procedure Notes Procedure: 1. FLUOROSCOPICALLY GUIDED CONTRAST CONTROLLED INTERLAMINAR EPIDURAL STEROID INJECTION - L5/S1 Indications: Adriano is referred by for treatment of Bilateral Foraminal Stenosis L>R LE symptoms. Physician: Justus Hart Total Fluoroscopy time (seconds): 7 Total sedation minutes: 11 Complications: none Procedure in detail & Post-procedure care: FINDINGS Multilevel Central Spinal Stenosis with Nerve Root Compression DESCRIPTION OF PROCEDURE Fluoroscopically guided, contrast-controlled L5/S1 translaminar epidural steroid injection. Following review of allergy and review of potential side effects and complications, including, but not necessarily limited to, infection, allergic reaction, local tissue breakdown, temporary as well as permanent nerve injury, paralysis, stroke and possible , the patient indicated that the patient understood and agreed to proceed. An informed consent document was signed by the patient, witnessed by a nurse, and placed in the patient's chart. Additionally, other treatment options including modalities, medications, and physical therapy were reviewed with the patient. After review of previous anaesthesic history and IV conscious sedation the patient was deemed safe to proceed with today?s procedure with IV conscious sedation as ASA class II designation. Safety time-out was performed to confirm patient ID, procedure to be performed and site of procedure. IV sedation was accomplished with a combination of 3mg of Versed and 50mcg of Fentanyl administered by the RN after DO order, titrated to patient comfort during the course of the procedure while the patient remained responsive to all verbal commands. In the prone position, following sterile prep and drape of the lumbar region, the L5/S1 translaminar space was identified fluoroscopically. The skin was anesthetized via a 25-gauge, 1.5-inch needle with 1% lidocaine solution. At this point, a 22-gauge short bevel spinal needle was atraumatically introduced and advanced under fluoroscopic guidance into the region of the L5/S1 translaminar space. Depth was confirmed on lateral view. Radiological data, including multiple fluoroscopic views of the lumbar spine, reveal a spinal needle at the L5/S1 translaminar space. Lateral views then show placement of the needle in the epidural space. Subsequent views show contrast material flowing superiorly and inferiorly in the epidural space. No vascular or intrathecal uptake is observed. At this point, using loss of resistance technique with saline and air, the epidural space was entered. This was confirmed following negative aspiration with injection of approximately 1.5 cc of Isovue 200, showing excellent epidural flow without vascular or intrathecal uptake. At this point, 1 cc of 1% lidocaine solution combined with 3cc or 20mg of dexamethasone and 6mg of betamethasone was injected without incident. The patent tolerated the procedure without signs of symptoms of complications prior to transfer to the recovery area for further monitoring. The patient was then transferred to the recovery area where they were observed for an appropriate period of time after the injection. The patient reported a VAS score of 6 prior to the procedure and a post-procedure VAS of 0. POST OP INSTRUCTIONS The patient was provided a Pain Log to continue to record their response to the target-specific procedure prior to follow-up visit with their referring physician. Additionally, specific post-injection care instructions and a contact number to our office were provided if concerns arise regarding possible complications associated with the procedure are suspected.
--- NOTE | 2020-01-22 15:10 | PC.NURSE ---
Pt to post procedure room at 1454. A&Ox3. Pain 06/15. Tolerating sips of coffee and cookies. waiting outside. IV removed without incident. Ready for discharge. No questions concerning post op instructions or follow up appt.
== END 2020-01-22 15:18 | disposition home or self-care (01) ==
LOC: RAD 13:40
PROVIDERS: PCP Family Medicine; Referring Provider Physical Medicine & Rehabilitation; Visit Provider Physical Medicine & Rehabilitation
DX: M51.17 Intervertebral disc disorders with radiculopathy, lumbosacral region (principal); M48.07 Spinal stenosis, lumbosacral region
CPT/HCPCS: 62323; 99152; J0702; J1100; J2250; J3010

== ENCOUNTER → 2020-03-18 11:25 | Outpatient (CLI) | payer OTHER, SELFPAY ==
--- NOTE | 2020-03-18 11:26 | DI.RAD.S_ITS ---
PROCEDURE: XR LUMBAR SPINE MIN 4V INDICATIONS: BACK PAIN TECHNIQUE: 5 views of the lumbar spine were acquired. COMPARISON: [facility], , L-SPINE 2-3 VIEWS, 01/17/2017, 10:32. FINDINGS: Bones: 5 nonrib-bearing vertebrae are present. There is multilevel trace retrolisthesis throughout the lumbar spine. There is moderate to severe disc space narrowing at L4-5, L5-S1, moderate throughout the remainder of the lumbar spine. Severe foraminal narrowing is noted L5-S1, mild to moderate L3-4, L4-5. This is overall slightly progressive compared to 2017. No vertebral body compression fractures. No suspicious bony lesions. Soft tissues: Overlying bowel gas pattern is normal. No suspicious soft tissue calcifications. Oblique images: No pars defects. IMPRESSION: Multilevel degenerative changes most severe at L5-S1, slightly progressive compared to 2017. Dictated by: Briana Gonzalez M.D. on 03/18/2020 at 17:03 Approved by: Briana Gonzalez M.D. on 03/18/2020 at 17:04
== END ==
PROVIDERS: PCP Family Medicine; Referring Provider Family Medicine; Visit Provider Physical Medicine & Rehabilitation
DX: M47.817 Spondylosis without myelopathy or radiculopathy, lumbosacral region (principal); M48.061 Spinal stenosis, lumbar region without neurogenic claudication; M99.03 Segmental and somatic dysfunction of lumbar region; M99.04 Segmental and somatic dysfunction of sacral region
CPT/HCPCS: 72110

== ENCOUNTER → 2020-04-03 07:45 | Outpatient (CLI) | payer OTHER, SELFPAY ==
[2020-04-03 08:34] LABS: Add Manual Diff / Slide Review NO; Basophils Absolute Auto 100 /uL (0-100); Basophils Percent Auto 1.2 % (0-2); Eosinophils Absolute Auto 200 /uL (0-450); Hematocrit 45.4 % (41-53); Hemoglobin 15.5 g/dL (13.5-17.5); Lymphocytes Absolute Auto 1700 /uL (1100-4500); Lymphocytes Percent Auto 24.9 % (25-40); Mean Corpuscular HGB Conc 34.2 % (30-36); Mean Corpuscular Hemoglobin 27.9 PG (26-34); Mean Corpuscular Volume 81.7 fL (80-100); Monocytes Absolute Auto 500 /uL (0-900); Neutrophils Absolute Auto 4300 /uL (1500-7000); Neutrophils Percent Auto 62.9 % (50-75); Platelet Count 165 X10^3/uL (150-400); Red Blood Cell Count 5.55 X10^6/uL (4.5-5.9); Red Cell Distribution Width 13.8 % (11.6-14.8); White Blood Cell Count 6.8 X10^3/uL (4.5-11.0)
[2020-04-03 08:40] LABS: Hemoglobin A1C% w Est Avg Glu 7.2 % (4.0-6.0)
[2020-04-03 09:12] LABS: Alanine Aminotransferase 26 IU/L (<50); Albumin 4.1 g/dL (3.5-5.0); Albumin Globulin Ratio 1.7 (1.0-2.8); Alkaline Phosphatase 99 U/L (38-126); Aspartate Aminotransferase 25 IU/L (17-59); BUN Creatinine Ratio 17.2 (6-22); Bilirubin Total 0.8 mg/dL (0.2-1.3); Blood Urea Nitrogen 21 mg/dL (9-20); Calcium 8.6 mg/dL (8.4-10.2); Carbon Dioxide 27 mmol/L (22-32); Chloride 103 mmol/L (98-107); Cholesterol 177 mg/dL (140-199); Estimated Glomerular Filt Rate > 60.0 mL/min (>60); Globulin 2.4 g/dL (1.7-4.1); Glucose 177 mg/dL (70-100); HDL Cholesterol 35 mg/dL (40-60); HEMOLYSIS 24 (0-50); LDL Cholesterol Calculated 101 mg/dL (<100); Potassium 4.2 mmol/L (3.4-5.1); Sodium 136 mmol/L (137-145); Total Protein 6.5 g/dL (6.3-8.2); Triglycerides 205 mg/dL (35-150)
[2020-04-03 12:01] LABS: Creatinine Urine Random 145.8 mg/dL
[2020-04-03 12:04] LABS: Microalbumi Creatinin Ratio Ur 6.8 ug/mg CR (<30)
== END ==
PROVIDERS: PCP Family Medicine; Referring Provider Family Medicine; Visit Provider Family Medicine
DX: E11.9 Type 2 diabetes mellitus without complications (principal); N18.9 Chronic kidney disease, unspecified
CPT/HCPCS: 36415; 80053; 80061; 82043; 82570; 83036; 85025

== ENCOUNTER → 2020-04-14 10:36 | Outpatient (CLI) | payer OTHER, SELFPAY ==
--- NOTE | 2020-04-14 10:38 | DI.CT.S_ITS ---
PROCEDURE: CT KIDNEY URETER BLADDER (KUB) INDICATIONS: history of right renal cancer TECHNIQUE: Noncontrast 5 mm thick sections acquired from the diaphragms to the symphysis. 5 mm thick coronal and sagittal reformats were then performed. For radiation dose reduction, the following was used: automated exposure control, adjustment of mA and/or kV according to patient size. COMPARISON: [facility], CT, CT ABDOMEN PELVIS W CON, 09/01/2018, 21:51. FINDINGS: Image quality: Excellent. Lung bases: Lung bases are clear. Heart size is normal. Urinary system: Right kidney: Surgically resected since the previous study. No evidence of local residual disease. Right ureter: Unremarkable Left kidney: No obvious masses. No stones. No hydronephrosis. Incidental middle pole cyst. Left ureter: Unremarkable Bladder: No bladder stones. No bladder wall thickening. Prostate somewhat enlarged. Other solid organs: Liver is normal in size. Gallbladder is unremarkable. Pancreas is normal in contours. Spleen is normal in size. No adrenal nodules. Peritoneum and bowel: Unenhanced bowel loops demonstrate normal wall thickness and caliber. No free fluid or air. Nodes and vessels: No retroperitoneal or mesenteric adenopathy by size criteria. Aorta and inferior vena cava are normal in caliber. Abdominal wall: No ventral hernias. Pelvis: No free pelvic fluid. No inguinal hernias or adenopathy. Bones: No suspicious bony lesions. No vertebral body compression fractures. IMPRESSION: 1. Interval right nephrectomy. 2. No evidence of residual or recurrent disease. 3. No metastatic lesions identified on this noncontrast study. Dictated by: Alvaro Morris M.D. on 04/14/2020 at 12:21 Approved by: Alvaro Morris M.D. on 04/14/2020 at 12:26
== END ==
PROVIDERS: PCP Family Medicine; Referring Provider Family Medicine; Visit Provider Specialist
DX: Z08 Encounter for follow-up examination after completed treatment for malignant neoplasm (principal); Z85.528 Personal history of other malignant neoplasm of kidney
CPT/HCPCS: 74176

== ENCOUNTER → 2020-04-22 09:41 | Outpatient (CLI) | payer OTHER, SELFPAY ==
--- NOTE | 2020-04-22 09:42 | DI.RAD.S_ITS ---
PROCEDURE: FL BARIUM SWALLOW INDICATIONS: asthma and gerd COMPARISON: None. FINDINGS: Function: There is normal esophageal peristalsis. There was both spontaneous and elicited gastroesophageal reflux with reflux at 1 point almost to the glottic level. Morphology: Air-contrast images demonstrate normal mucosal morphology and there is a small episodic sliding hiatal hernia. Single contrast views show no esophageal strictures, extrinsic mass effects, or diverticula. Limited images of the stomach demonstrate normal appearance. IMPRESSION: Small sliding hiatal hernia is present and there was episodic spontaneous and elicited gastroesophageal reflux including extending almost to the glottic level. On discussing symptomatology with the patient he does report reflux and aspiration waking himself from sleep several times weekly. No sign of erosions or stricture. Dictated by: Kenan Goldberg M.D. on 04/22/2020 at 10:21 Approved by: Kenan Goldberg M.D. on 04/22/2020 at 10:24
== END ==
PROVIDERS: PCP Family Medicine; Referring Provider Family Medicine; Visit Provider Family Medicine
DX: K44.9 Diaphragmatic hernia without obstruction or gangrene (principal); K21.9 Gastro-esophageal reflux disease without esophagitis; J45.909 Unspecified asthma, uncomplicated
CPT/HCPCS: 74220

== ENCOUNTER → 2020-06-23 14:13 | Outpatient (CLI) | payer OTHER, SELFPAY ==
[2020-06-23 16:19] LABS: COVID19 -Nasal RAPID Negative (Negative)
== END ==
PROVIDERS: PCP Family Medicine; Visit Provider Physical Medicine & Rehabilitation
DX: Z01.812 Encounter for preprocedural laboratory examination (principal); Z20.822 Contact with and (suspected) exposure to COVID-19
CPT/HCPCS: 87635; C9803

== ENCOUNTER 2020-06-24 08:16 | Outpatient (CLI) | payer OTHER, SELFPAY ==
[2020-06-24] VITALS (9 sets, daily range): BP systolic 110–137; BP diastolic 76–92; PULSE 73–86; RESP 11–18; TEMP 35.8; O2SAT 94–98
--- NOTE | 2020-06-24 08:20 | DI.RAD.S_ITS ---
PROCEDURE: PAIN SI JOINT INJECTION INDICATIONS: SACROCOCCGEAL DISORDER COMPARISON: [facility], XA, PAIN L INTERLAMINAR/CAUDAL INJ, 01/22/2020, 13:40. FINDINGS: On this intraprocedural image, there is a spinal needle seen overlying the inferior aspect of the left sacroiliac joint. Appropriate position of the tip of the needle was confirmed with injection of a small amount of iodinated contrast. IMPRESSION: Intraprocedural examination within normal limits. Dictated by: Tone Aguilar M.D. on 06/24/2020 at 9:08 Approved by: Tone Aguilar M.D. on 06/24/2020 at 9:09
[2020-06-24] MEDS: MIDAZOLAM 5 MG/5 ML VIAL IV (09:22)
[2020-06-24] MEDS: fentaNYL 100 MCG/2 ML INJ 50 MCG IV (09:22)
[2020-06-24] MEDS: BUPIVACAINE 0.5% (PF) VIAL 2 ML INJ (09:28)
[2020-06-24] MEDS: IOPAMIDOL 15 ML VIAL 3 ML INJ (09:28)
[2020-06-24] MEDS: BETAMETHASONE 30 MG/5 ML MDV 12 MG INJ (09:28)
--- NOTE | 2020-06-24 09:36 | PM.PROC.IR.1 ---
Date/Time/Diagnoses Date of procedure: 06/24/20 Time of procedure: 09:36 Pre-procedure diagnosis: Sacroiliac Joint Pain/DJD Post-procedure diagnosis: same Procedure Notes Procedure: Fluoroscopically guided contrast controlled left sacroiliac joint injection Indications: Adriano is referred by Dr. Beltran for treatment of left sacroiliac joint DJD Physician: Justus Hart Total Fluoroscopy time (seconds): 8 Total sedation minutes: 12 Complications: none Procedure in detail & Post-procedure care: DESCRIPTION OF PROCEDURE Fluoroscopic guided, contrast controlled left sacroiliac joint injection Following review of allergies and review of potential side effects and complications, including, but not necessarily limited to, infection, allergic reaction, local tissue breakdown, temporary as well as permanent nerve injury, paralysis, stroke and possible , the patient indicated that they understood and agreed to proceed. An informed consent was signed by the patient, witnessed by a nurse, and placed in the patient's chart. Additionally, other treatment options including modalities, medications, and physical therapy were reviewed with the patient. After review of previous anaesthesic history and IV conscious sedation the patient was deemed safe to proceed with today?s procedure with IV conscious sedation as ASA class II designation. Safety time-out was performed to confirm patient ID, procedure to be performed and site of procedure. IV sedation was accomplished with a combination of 3mg of Versed and 50mcg of Fentanyl administered by the RN after DO order, titrated to patient comfort during the course of the procedure while the patient remained responsive to all verbal commands. In the prone position following sterile prep and drape of the pelvic region, the hyper lucency on in the inferior aspect of the left sacroiliac joint was identified fluoroscopically the skin was anesthetized be a 25 gauge 1 eventual with approximately 2cc of 1% lidocaine solution. At this point, a 22 gauge 3inch spinal needle was atraumatically introduced and advanced under fluoroscopic guidance into the inferior aspect of the left sacroiliac joint. Following negative aspiration, approximately 0.3cc of Isovue-300 was injected confirming intra-articular placement without vascular uptake. Radiographic data, including multiple fluoroscopic views of the pelvis, reveals a spinal needle in the left sacroiliac joint hyper lucent zone. Subsequent view show flow contrast tear superiorly and inferiorly within the joint capsule without vascular intrathecal uptake. At this point a total of 1cc or 0.5% Marcaine was combined with 1cc of 6mg of betamethasone was injected without incident. The patient tolerated the procedure well without signs or symptoms of complications prior to transfer to the recovery area for further monitoring. The patient was then transferred to the recovery area with a bur observed for an appropriate time after the injection. The patient reverted a vas score of 7 prior to the procedure and postprocedure vas of 1. POSTOP INSTRUCTIONS The patient was provided with a pain like to continue to record the patient's response to the target specific procedure prior to the patient's follow-up visit with the referring physician. Additionally, specific post injection care instructions and a contact number to our office were provided if concerns arise regarding the possible complications associated with procedure are suspected.
== END 2020-06-24 09:55 | disposition home or self-care (01) ==
LOC: RAD 08:18
PROVIDERS: PCP Family Medicine; Referring Provider Family Medicine; Visit Provider Physical Medicine & Rehabilitation
DX: M53.3 Sacrococcygeal disorders, not elsewhere classified (principal); M46.1 Sacroiliitis, not elsewhere classified
CPT/HCPCS: 27096; 99152; J0702; J2250; J3010

== ENCOUNTER → 2020-07-22 07:35 | Outpatient (CLI) | payer OTHER, SELFPAY ==
[2020-07-22 08:10] LABS: Hematocrit 43.4 % (41-53); Hemoglobin 15.3 g/dL (13.5-17.5)
[2020-07-22 08:26] LABS: BUN Creatinine Ratio 13.2 (6-22); Blood Urea Nitrogen 18 mg/dL (9-20); Calcium 8.8 mg/dL (8.4-10.2); Carbon Dioxide 31 mmol/L (22-32); Chloride 104 mmol/L (98-107); Estimated Glomerular Filt Rate 55.2 mL/min (>60); Glucose 185 mg/dL (70-100); HEMOLYSIS < 15 (0-50); Sodium 139 mmol/L (137-145)
[2020-07-22 11:01] LABS: Creatinine Urine Random 210.6 mg/dL; Protein (Total) Urine Random 7 mg/dL (0-12); Protein Creatinine Ratio Urine 0.03 GRAM/24H
[2020-07-23 08:09] LABS: Parathyroid Hormone Int 64 pg/mL (15-65)
== END ==
PROVIDERS: PCP Family Medicine; Referring Provider Student in an Organized Health Care Education/Training Program; Visit Provider Student in an Organized Health Care Education/Training Program
DX: N05.9 Unspecified nephritic syndrome with unspecified morphologic changes (principal); D64.9 Anemia, unspecified; N25.81 Secondary hyperparathyroidism of renal origin; R80.9 Proteinuria, unspecified
CPT/HCPCS: 36415; 80048; 82570; 83970; 84156; 85014; 85018

== ENCOUNTER → 2020-07-30 08:39 | Outpatient (CLI) | payer OTHER, SELFPAY ==
[2020-07-30 09:55] LABS: Hemoglobin A1C% w Est Avg Glu 7.3 % (4.0-6.0)
[2020-07-30 10:08] LABS: Alanine Aminotransferase 20 IU/L (<50); Albumin Globulin Ratio 1.5 (1.0-2.8); Alkaline Phosphatase 96 U/L (38-126); Aspartate Aminotransferase 18 IU/L (17-59); BUN Creatinine Ratio 14.4 (6-22); Bilirubin Total 0.6 mg/dL (0.2-1.3); Blood Urea Nitrogen 18 mg/dL (9-20); Calcium 8.8 mg/dL (8.4-10.2); Carbon Dioxide 30 mmol/L (22-32); Chloride 104 mmol/L (98-107); Estimated Glomerular Filt Rate > 60.0 mL/min (>60); Globulin 2.6 g/dL (1.7-4.1); Glucose 178 mg/dL (70-100); HEMOLYSIS < 15 (0-50); Potassium 3.8 mmol/L (3.4-5.1); Sodium 137 mmol/L (137-145); Total Protein 6.6 g/dL (6.3-8.2)
== END ==
PROVIDERS: PCP Family Medicine; Referring Provider Family Medicine; Visit Provider Family Medicine
DX: E11.9 Type 2 diabetes mellitus without complications (principal); N18.9 Chronic kidney disease, unspecified; Z79.4 Long term (current) use of insulin
CPT/HCPCS: 36415; 80053; 83036

== ENCOUNTER → 2020-09-03 08:43 | Outpatient (CLI) | payer OTHER, SELFPAY ==
[2020-09-03] MEDS: COVID-19 VACC #1, MRNA(MOD) 100 MCG/0.5 ML VIAL IM (08:51)
== END ==
PROVIDERS: PCP Family Medicine; Visit Provider Internal Medicine
DX: Z23 Encounter for immunization (principal)
CPT/HCPCS: 0011A; 0031A; 91301; 91303

== ENCOUNTER → 2020-10-01 07:47 | Outpatient (CLI) | payer OTHER, SELFPAY ==
[2020-10-01] MEDS: COVID-19 VACC #2, MRNA(MOD) 100 MCG/0.5 ML VIAL IM (07:54)
== END ==
PROVIDERS: PCP Family Medicine; Visit Provider Internal Medicine
DX: Z23 Encounter for immunization (principal)
CPT/HCPCS: 0012A; 91301

== ENCOUNTER → 2020-10-20 10:29 | Outpatient (CLI) | payer OTHER, SELFPAY ==
[2020-10-20 12:04] LABS: Add Manual Diff / Slide Review NO; Basophils Absolute Auto 100 /uL (0-100); Basophils Percent Auto 0.9 % (0-2); Eosinophils Absolute Auto 100 /uL (0-450); Eosinophils Percent Auto 1.6 % (2-4); Hematocrit 47.7 % (41-53); Hemoglobin 16.7 g/dL (13.5-17.5); Lymphocytes Absolute Auto 1400 /uL (1100-4500); Lymphocytes Percent Auto 17.6 % (25-40); Mean Corpuscular HGB Conc 35.1 % (30-36); Mean Corpuscular Hemoglobin 28.2 PG (26-34); Mean Corpuscular Volume 80.3 fL (80-100); Monocytes Absolute Auto 700 /uL (0-900); Monocytes Percent Auto 8.3 % (3-14); Neutrophils Absolute Auto 5800 /uL (1500-7000); Neutrophils Percent Auto 71.6 % (50-75); Platelet Count 204 X10^3/uL (150-400); Red Blood Cell Count 5.93 X10^6/uL (4.5-5.9); White Blood Cell Count 8.1 X10^3/uL (4.5-11.0)
[2020-10-20 12:13] LABS: Hemoglobin A1C% w Est Avg Glu 6.5 % (4.0-6.0)
[2020-10-20 12:27] LABS: Alanine Aminotransferase 36 IU/L (<50); Albumin 4.4 g/dL (3.5-5.0); Albumin Globulin Ratio 1.8 (1.0-2.8); Alkaline Phosphatase 108 U/L (38-126); Aspartate Aminotransferase 31 IU/L (17-59); BUN Creatinine Ratio 12.2 (6-22); Blood Urea Nitrogen 17 mg/dL (9-20); Calcium 9.9 mg/dL (8.4-10.2); Carbon Dioxide 25 mmol/L (22-32); Chloride 98 mmol/L (98-107); Estimated Glomerular Filt Rate 53.9 mL/min (>60); Globulin 2.5 g/dL (1.7-4.1); Glucose 110 mg/dL (70-100); HEMOLYSIS < 15 (0-50); Potassium 4.3 mmol/L (3.4-5.1); Sodium 137 mmol/L (137-145); Total Protein 6.9 g/dL (6.3-8.2)
== END ==
PROVIDERS: PCP Family Medicine; Referring Provider Surgery; Visit Provider Surgery
DX: K44.9 Diaphragmatic hernia without obstruction or gangrene (principal)
CPT/HCPCS: 36415; 80053; 83036; 85025

== ENCOUNTER → 2020-11-10 08:38 | Outpatient (CLI) | payer BC, OTHER, SELFPAY ==
[2020-11-10 15:46] LABS: COVID19 -Nasal RAPID Negative (Negative)
== END ==
PROVIDERS: PCP Family Medicine; Visit Provider Physical Medicine & Rehabilitation
DX: Z20.822 Contact with and (suspected) exposure to COVID-19 (principal)
CPT/HCPCS: 87635; C9803

== ENCOUNTER 2020-11-11 07:38 | Outpatient (CLI) | payer BC, OTHER, SELFPAY ==
[2020-11-11] VITALS (10 sets, daily range): BP systolic 105–129; BP diastolic 55–101; PULSE 86–97; RESP 13–18; TEMP 35.9; O2SAT 96–100
--- NOTE | 2020-11-11 07:40 | DI.RAD.S_ITS ---
PROCEDURE: PAIN L/S TRANSFORAMINAL INJECT INDICATIONS: SPONDYLOSIS COMPARISON: [facility], , PAIN L/S TRANSFORAMINAL INJECT, 05/08/2019, 16:02. FINDINGS: Fluoroscopic spot filming was performed to verify placement of a spinal needle at the L4-L5 level, as labeled on the films. Appropriate location of the needle tip was confirmed by injection of iodinated contrast. IMPRESSION: Intraprocedural examination within normal limits. Dictated by: Tone Aguilar M.D. on 11/11/2020 at 8:02 Approved by: Tone Aguilar M.D. on 11/11/2020 at 8:03
[2020-11-11] MEDS: fentaNYL 100 MCG/2 ML INJ 50 MCG IV (08:07)
[2020-11-11] MEDS: BUPIVACAINE 0.25% (PF) VIAL 2 ML INJ (08:14)
[2020-11-11] MEDS: IOPAMIDOL 15 ML VIAL 3 ML INJ (08:14)
[2020-11-11] MEDS: DEXAMETHASONE 10 MG/ML VIAL 20 MG INJ (08:15)
[2020-11-11] MEDS: methylPREDNISolone acetate 80 MG/ML VIAL INJ (08:15)
[2020-11-11] MEDS: MIDAZOLAM 5 MG/5 ML VIAL IV (08:18)
--- NOTE | 2020-11-11 08:28 | P.PCN_ITS ---
Date/Time/Diagnoses Date of procedure: 11/11/20 Time of procedure: 08:28 Pre-procedure diagnosis: 1. FORAMINAL STENOSIS WITH LE SYMPTOMS Post-procedure diagnosis: same Procedure Notes Procedure: 1. FLUOROSCOPICALLY GUIDED CONTRAST CONTROLLED TRANSFORAMINAL EPIDURAL STEROID INJECTION - LEFT L4/5 Indications: Adriano is referred by Dr. Beltran for treatment of Foraminal Stenosis with Left LE Symptoms Physician: Justus Hart Total Fluoroscopy time (seconds): 11 Total sedation minutes: 16 Complications: none Procedure in detail & Post-procedure care: FINDINGS Foraminal Nerve Root Compression secondary to disc disease and facet hypertrophy DESCRIPTION OF PROCEDURE Following review of allergy and review of potential side effects and complications, including, but not necessarily limited to, infection, allergic reaction, local tissue breakdown, stroke, temporary or permanent nerve injury, paralysis, and possible , the patient indicated that the patient understood and agreed to proceed. An informed consent document was signed by the patient, witnessed by a nurse, and placed in the patient's chart. Additionally, other treatment options including medications, modalities, and physical therapy were reviewed with the patient. After review of previous anaesthesic history and IV conscious sedation the patient was deemed safe to proceed with today?s procedure with IV conscious sedation as ASA class II designation. Safety time-out was performed to confirm patient ID, procedure to be performed and site of procedure. IV sedation was accomplished with a combination of 5mg of Versed and 50mcg of Fentanyl administered by the RN after DO order, titrated to patient comfort during the course of the procedure while the patient remained responsive to all verbal commands In the prone position following sterile prep and drape of the lumbar region, the left L4/5 posterior neuroforamen was identified fluoroscopically. The skin was anesthetized via a 25-gauge 1.5-inch needle with 1% lidocaine solution. At this point, a 25-gauge 3.5-inch spinal needle was atraumatically introduced and advanced under fluoroscopic guidance through the posterior left L4/5 neuroforamen to approximately the anterior aspect of the canal. Depth was confirmed on lateral view. Following negative aspiration, injection of approximately 1.5 cc of Isovue 200 under live fluoroscopy in the AP view confirmed excellent flow along the nerve root, into the epidural space without vascular or intrathecal uptake observed Radiological data, including multiple fluoroscopic views of the lumbosacral spine, reveal a spinal needle at the left L4/5 posterior neuroforamen. Subsequent views show flow of contrast material flowing superiorly and inferiorly along the nerve root confirming epidural flow. Subsequently, a test dose of 1.5 cc of 1% lidocaine solution was administered and patient was observed for two minutes for signs or symptoms of complications, including abdominal pain, shortness of breath, bilateral upper or lower extremity weakness, nausea and vomiting, prior to steroid injection. At this point, a total of 3cc or 20mg of dexamethasone and 80mg of Depo Medrol was injected without incident. The procedure tolerated the procedure well without signs or symptoms of complications prior to transfer to the recovery area continued monitoring without incident. The patient was then transferred to the recovery area where they were observed for an appropriate time after the injection. The patient reported a VAS score of 7 prior to the procedure and a post- procedure VAS of 0. POST OP INSTRUCTIONS The patient was provided a Pain Log to continue to record their response to the target-specific procedure prior to follow-up visit with their referring physician. Additionally, specific post-injection care instructions and a contact number to our office were provided if concerns arise regarding possible complications associated with the procedure are suspected.
== END 2020-11-11 08:50 | disposition home or self-care (01) ==
LOC: RAD 07:39
PROVIDERS: PCP Family Medicine; Referring Provider Family Medicine; Visit Provider Physical Medicine & Rehabilitation
DX: M47.817 Spondylosis without myelopathy or radiculopathy, lumbosacral region (principal); M54.16 Radiculopathy, lumbar region; M48.061 Spinal stenosis, lumbar region without neurogenic claudication
CPT/HCPCS: 64483; 99152; J0702; J1040; J1100; J2250; J3010

== ENCOUNTER → 2021-04-03 07:19 | Outpatient (CLI) | payer OTHER, SELFPAY ==
[2021-04-03 08:14] LABS: Hematocrit 44.4 % (41-53); Hemoglobin 15.8 g/dL (13.5-17.5)
[2021-04-03 08:35] LABS: Creatinine Urine Random 135.7 mg/dL; Protein (Total) Urine Random 5 mg/dL (0-12); Protein Creatinine Ratio Urine 0.03 GRAM/24H
[2021-04-03 08:39] LABS: BUN Creatinine Ratio 13.1 (6-22); Blood Urea Nitrogen 16 mg/dL (9-20); Carbon Dioxide 25 mmol/L (22-32); Chloride 104 mmol/L (98-107); Estimated Glomerular Filt Rate > 60.0 mL/min (>60); Glucose 164 mg/dL (70-100); HEMOLYSIS < 15 (0-50); Potassium 4.3 mmol/L (3.4-5.1); Sodium 139 mmol/L (137-145)
[2021-04-03 18:00] LABS: Hemoglobin A1C% w Est Avg Glu 6.5 % (4.0-6.0)
[2021-04-04 08:11] LABS: Parathyroid Hormone Int 62 pg/mL (15-65)
== END ==
PROVIDERS: PCP Family Medicine; Referring Provider Student in an Organized Health Care Education/Training Program; Visit Provider Student in an Organized Health Care Education/Training Program
DX: N05.9 Unspecified nephritic syndrome with unspecified morphologic changes (principal); D64.9 Anemia, unspecified; N25.81 Secondary hyperparathyroidism of renal origin; R80.9 Proteinuria, unspecified; E11.9 Type 2 diabetes mellitus without complications; Z79.4 Long term (current) use of insulin
CPT/HCPCS: 36415; 80048; 82570; 83036; 83970; 84156; 85014; 85018

== ENCOUNTER → 2021-04-17 13:40 | Outpatient (CLI) | payer OTHER, SELFPAY ==
--- NOTE | 2021-04-17 | DI.CT.S_ITS ---
PROCEDURE: CT KIDNEY URETER BLADDER (KUB) INDICATIONS: Chronic kidney disease, unspecified TECHNIQUE: Axial sections were acquired from the lung bases to the pubic symphysis. Coronal and sagittal reformats were performed. For radiation dose reduction, the following was used: automated exposure control, adjustment of mA and/or kV according to patient size. COMPARISON: [facility], CT, CT KUB, 04/13/2019, 12:42. [facility], CT, CT KIDNEY URETER BLADDER (KUB), 04/14/2020, 10:42. FINDINGS: Image quality: Excellent. Lung bases: Lung bases are clear. Heart size is normal. Solid organs: Liver: The liver has no mass or intrahepatic biliary ductal dilatation. Biliary: The gallbladder has no gallstones, pericholecystic fluid, gallbladder wall thickening, or surrounding inflammatory change. Pancreas: The pancreas has no mass or ductal dilatation. There is no surrounding inflammation. Spleen: Normal size. There are no masses. Adrenals: No hypertrophy or nodules. Kidneys: Status post right nephrectomy. There is no evidence of recurrent neoplasm in the nephrectomy bed. The left kidney has a 2 cm cyst in the midpole. No solid mass of the left kidney. Peritoneum and bowel: The distal esophagus and stomach are normal. The small bowel has a normal caliber and appearance. The terminal ileum is normal. The large bowel has a normal caliber and appearance. The appendix is normal. Status post left sigmoid colon resection. Nodes and vessels: No retroperitoneal or mesenteric adenopathy by size criteria. Aorta and inferior vena cava are normal in size. Miscellaneous: No abdominal wall mass or hernia. PELVIS: Genitourinary: The bladder has no wall thickening or mass. No bladder calcifications. Bones: Degenerative disc disease at L5-S1 and L4-5. No vertebral body compression fractures. IMPRESSION: 1. Status post right nephrectomy with no evidence of residual or recurrent disease. 2. No metastatic disease to the abdomen or pelvis. Dictated by: Ivan Arzola M.D. on 04/17/2021 at 14:47 Approved by: Ivan Arzola M.D. on 04/17/2021 at 14:54
== END ==
PROVIDERS: PCP Family Medicine; Referring Provider Family Medicine; Visit Provider Family Medicine
DX: N18.9 Chronic kidney disease, unspecified (principal); Z90.5 Acquired absence of kidney
CPT/HCPCS: 74176

== ENCOUNTER → 2021-05-19 16:27 | Outpatient (CLI) | payer BC, OTHER, SELFPAY ==
[2021-05-19 18:26] LABS: Prostate Specific Antigen 0.781 ng/mL (0.10-4.00)
== END ==
PROVIDERS: PCP Family Medicine; Referring Provider Specialist; Visit Provider Specialist
DX: R97.20 Elevated prostate specific antigen [PSA] (principal)
CPT/HCPCS: 36415; 84153

== ENCOUNTER → 2021-06-09 10:56 | Outpatient (CLI) | payer BC, OTHER, SELFPAY ==
[2021-06-09 12:46] LABS: COVID19 -Nasal RAPID Negative (Negative)
== END ==
PROVIDERS: PCP Family Medicine; Visit Provider Physical Medicine & Rehabilitation
DX: Z20.822 Contact with and (suspected) exposure to COVID-19 (principal)
CPT/HCPCS: 87635; C9803

== ENCOUNTER 2021-06-11 08:16 | Outpatient (CLI) | payer BC, OTHER, SELFPAY ==
[2021-06-11] VITALS (8 sets, daily range): BP systolic 121–151; BP diastolic 70–87; PULSE 78–85; RESP 12–19; TEMP 35.8; O2SAT 93–97
--- NOTE | 2021-06-11 08:16 | DI.RAD.S_ITS ---
PROCEDURE: PAIN L/S TRANSFORAM INJECT [id number] COMPARISON: [facility], , PAIN L/S TRANSFORAMINAL INJECT, 11/11/2020, 8:16. INDICATIONS: SPONDYLOSIS FINDINGS: Fluoroscopic spot filming was performed to verify placement of spinal needles at the L4-L5 level, as labeled on the films. Appropriate location of the needle tips was confirmed by injection of iodinated contrast. IMPRESSION: Intraprocedural examination within normal limits. Dictated by: Tone Aguilar M.D. on 06/11/2021 at 8:51 Approved by: Tone Aguilar M.D. on 06/11/2021 at 8:52
[2021-06-11] MEDS: fentaNYL 100 MCG/2 ML INJ 50 MCG IV (09:10)
[2021-06-11] MEDS: IOPAMIDOL 15 ML VIAL 3 ML INJ (09:14)
[2021-06-11] MEDS: MIDAZOLAM 5 MG/5 ML VIAL IV (09:15)
[2021-06-11] MEDS: DEXAMETHASONE 10 MG/ML VIAL 20 MG INJ (09:16)
[2021-06-11] MEDS: BETAMETHASONE 30 MG/5 ML MDV 12 MG INJ (09:16)
[2021-06-11] MEDS: BUPIVACAINE 0.25% (PF) VIAL 2 ML INJ (09:16)
--- NOTE | 2021-06-11 09:27 | PM.PROC.IR.1 ---
Date/Time/Diagnoses Date of procedure: 06/11/21 Time of procedure: 09:27 Pre-procedure diagnosis: 1. FORAMINAL STENOSIS WITH LE SYMPTOMS Procedure Notes Procedure: 1. FLUOROSCOPICALLY GUIDED CONTRAST CONTROLLED TRANSFORAMINAL EPIDURAL STEROID INJECTION - BILATERAL L4/5 TFESI Indications: Adriano is referred by Dr. Beltran for treatment of Foraminal Stenosis with bilateral LE Symptoms Physician: Justus Hart Total Fluoroscopy time (seconds): 13 Total sedation minutes: 12 Complications: none Procedure in detail & Post-procedure care: FINDINGS Foraminal Nerve Root Compression secondary to disc disease and facet hypertrophy DESCRIPTION OF PROCEDURE Following review of allergy and review of potential side effects and complications, including, but not necessarily limited to, infection, allergic reaction, local tissue breakdown, stroke, temporary or permanent nerve injury, paralysis, and possible , the patient indicated that the patient understood and agreed to proceed. An informed consent document was signed by the patient, witnessed by a nurse, and placed in the patient's chart. Additionally, other treatment options including medications, modalities, and physical therapy were reviewed with the patient. After review of previous anaesthesic history and IV conscious sedation the patient was deemed safe to proceed with today?s procedure with IV conscious sedation as ASA class II designation. Safety time-out was performed to confirm patient ID, procedure to be performed and site of procedure. IV sedation was accomplished with a combination of 5mg of Versed and 50mcg of Fentanyl was administered by the RN after DO order, titrated to patient comfort during the course of the procedure while the patient remained responsive to all verbal commands In the prone position following sterile prep and drape of the lumbar region, the right L4/5 posterior neuroforamen was identified fluoroscopically. The skin was anesthetized via a 25-gauge 1.5-inch needle with 1% lidocaine solution. At this point, a 25-gauge 3.5-inch spinal needle was atraumatically introduced and advanced under fluoroscopic guidance through the posterior right L4/5 neuroforamen to approximately the anterior aspect of the canal. Depth was confirmed on lateral view. Following negative aspiration, injection of approximately 1.5cc of Isovue 200 under live fluoroscopy in the AP view confirmed excellent flow along the nerve root, into the epidural space without vascular or intrathecal uptake observed Radiological data, including multiple fluoroscopic views of the lumbosacral spine, reveal a spinal needle at the right L4/5 posterior neuroforamen. Subsequent views show flow of contrast material flowing superiorly and inferiorly along the nerve root confirming epidural flow. Subsequently, a test dose of 1.5cc of 1% lidocaine solution was administered and patient was observed for two minutes for signs or symptoms of complications, including abdominal pain, shortness of breath, bilateral upper or lower extremity weakness, nausea and vomiting, prior to steroid injection. At this point, a total of 3cc or 20mg of dexamethasone and 6mg betamethasone was injected without incident. Attention was then refocused to the left L4/5 level where the identical procedure was replicated. The procedure tolerated the procedure well without signs or symptoms of complications prior to transfer to the recovery area continued monitoring without incident. The patient was then transferred to the recovery area where they were observed for an appropriate time after the injection. The patient reported a VAS score of 7 prior to the procedure and a post-procedure VAS of 0. POST OP INSTRUCTIONS The patient was provided a Pain Log to continue to record their response to the target-specific procedure prior to follow-up visit with their referring physician. Additionally, specific post-injection care instructions and a contact number to our office were provided if concerns arise regarding possible complications associated with the procedure are suspected.
== END 2021-06-11 09:50 | disposition home or self-care (01) ==
PROVIDERS: PCP Family Medicine; Referring Provider Physical Medicine & Rehabilitation; Visit Provider Physical Medicine & Rehabilitation
DX: M48.061 Spinal stenosis, lumbar region without neurogenic claudication (principal); M51.16 Intervertebral disc disorders with radiculopathy, lumbar region
CPT/HCPCS: 64483; 99152; J0702; J1100; J2250; J3010

== ENCOUNTER → 2021-07-17 09:04 | Outpatient (CLI) | payer OTHER, SELFPAY ==
[2021-07-17 10:04] LABS: Hemoglobin A1C% w Est Avg Glu 7.7 % (4.0-6.0)
[2021-07-17 10:21] LABS: Alanine Aminotransferase 21 IU/L (<50); Albumin 4.1 g/dL (3.5-5.0); Albumin Globulin Ratio 1.9 (1.0-2.8); Alkaline Phosphatase 118 U/L (38-126); Aspartate Aminotransferase 19 IU/L (17-59); BUN Creatinine Ratio 12.1 (6-22); Bilirubin Total 0.7 mg/dL (0.2-1.3); Blood Urea Nitrogen 15 mg/dL (9-20); Calcium 9.1 mg/dL (8.4-10.2); Carbon Dioxide 27 mmol/L (22-32); Chloride 106 mmol/L (98-107); Estimated Glomerular Filt Rate > 60.0 mL/min (>60); Globulin 2.2 g/dL (1.7-4.1); Glucose 237 mg/dL (70-100); HEMOLYSIS < 15 (0-50); Potassium 4.2 mmol/L (3.4-5.1); Sodium 139 mmol/L (137-145); Total Protein 6.3 g/dL (6.3-8.2)
== END ==
PROVIDERS: PCP Family Medicine; Referring Provider Family Medicine; Visit Provider Family Medicine
DX: E11.9 Type 2 diabetes mellitus without complications (principal); N18.9 Chronic kidney disease, unspecified; Z79.4 Long term (current) use of insulin
CPT/HCPCS: 36415; 80053; 83036

== ENCOUNTER → 2021-10-14 07:05 | Outpatient (CLI) | payer OTHER, MEDICAID, SELFPAY ==
[2021-10-14 08:28] LABS: Add Manual Diff / Slide Review NO; Basophils Absolute Auto 100 /uL (0-100); Basophils Percent Auto 1.1 % (0-2); Eosinophils Absolute Auto 200 /uL (0-450); Eosinophils Percent Auto 2.2 % (2-4); Hematocrit 45.9 % (41-53); Hemoglobin 16.3 g/dL (13.5-17.5); Lymphocytes Absolute Auto 1800 /uL (1100-4500); Mean Corpuscular HGB Conc 35.4 % (30-36); Mean Corpuscular Volume 81.7 fL (80-100); Monocytes Absolute Auto 600 /uL (0-900); Monocytes Percent Auto 8.6 % (3-14); Neutrophils Absolute Auto 4500 /uL (1500-7000); Neutrophils Percent Auto 63.1 % (50-75); Platelet Count 175 X10^3/uL (150-400); Red Blood Cell Count 5.62 X10^6/uL (4.5-5.9); Red Cell Distribution Width 14.3 % (11.6-14.8); White Blood Cell Count 7.2 X10^3/uL (4.5-11.0)
[2021-10-14 08:41] LABS: Hemoglobin A1C% w Est Avg Glu 7.8 % (4.0-6.0)
[2021-10-14 08:59] LABS: Alanine Aminotransferase 26 IU/L (<50); Albumin 4.4 g/dL (3.5-5.0); Albumin Globulin Ratio 1.8 (1.0-2.8); Alkaline Phosphatase 123 U/L (38-126); Aspartate Aminotransferase 22 IU/L (17-59); BUN Creatinine Ratio 14.5 (6-22); Bilirubin Total 0.7 mg/dL (0.2-1.3); Blood Urea Nitrogen 19 mg/dL (9-20); Calcium 8.6 mg/dL (8.4-10.2); Carbon Dioxide 25 mmol/L (22-32); Chloride 104 mmol/L (98-107); Cholesterol 185 mg/dL (140-199); Estimated Glomerular Filt Rate > 60 mL/min (>60); Globulin 2.5 g/dL (1.7-4.1); Glucose 250 mg/dL (70-100); HDL Cholesterol 34 mg/dL (40-60); HEMOLYSIS < 15 (0-50); LDL Cholesterol Calculated 108 mg/dL (<100); Potassium 4.1 mmol/L (3.4-5.1); Sodium 137 mmol/L (137-145); Total Protein 6.9 g/dL (6.3-8.2); Triglycerides 217 mg/dL (35-150)
[2021-10-14 09:25] LABS: Prostate Specific Antigen Scrn 0.929 ng/mL (0.1-4.0)
[2021-10-14 11:54] LABS: Creatinine Urine Random 111.5 mg/dL
[2021-10-14 11:55] LABS: Protein (Total) Urine Random < 5 mg/dL (0-12); Protein Creatinine Ratio Urine 0.04 GRAM/24H
[2021-10-15 05:29] LABS: Parathyroid Hormone Int 50 pg/mL (15-65)
== END ==
PROVIDERS: PCP Family Medicine; Referring Provider Student in an Organized Health Care Education/Training Program; Visit Provider Student in an Organized Health Care Education/Training Program
DX: E11.9 Type 2 diabetes mellitus without complications (principal); I10 Essential (primary) hypertension; N18.9 Chronic kidney disease, unspecified; Z13.220 Encounter for screening for lipoid disorders; Z79.4 Long term (current) use of insulin; Z12.5 Encounter for screening for malignant neoplasm of prostate; N05.9 Unspecified nephritic syndrome with unspecified morphologic changes; D64.9 Anemia, unspecified; N25.81 Secondary hyperparathyroidism of renal origin; R80.9 Proteinuria, unspecified
CPT/HCPCS: 36415; 80053; 80061; 82570; 83036; 83970; 84156; 85025; G0103

== ENCOUNTER → 2021-12-10 16:04 | Outpatient (CLI) | payer BC, OTHER, MEDICAID, SELFPAY ==
--- NOTE | 2021-12-10 16:06 | DI.RAD.S_ITS ---
PROCEDURE: XR KNEE RT 3V INDICATIONS: pain TECHNIQUE: 3 views of the knee were acquired. COMPARISON: None. FINDINGS: Bones: No fractures or dislocations. No suspicious bony lesions. Mild narrowing of the medial femorotibial joint and mild tricompartmental periarticular osteophyte formation. Soft tissues: No joint effusion. No suspicious soft tissue calcifications. IMPRESSION: Mild early knee joint degeneration, most notably involving the medial femorotibial joint. Dictated by: Puneet EVANS Interpreted: Papo Arcos MD on 12/10/2021 at 16:52 Transcribed by: RYAN on 12/10/2021 at 16:52 Approved by: Papo Arcos M.D. on 12/10/2021 at 17:53
--- NOTE | 2021-12-10 16:06 | DI.RAD.S_ITS ---
PROCEDURE: XR KNEE LT 3V INDICATIONS: pain TECHNIQUE: 3 views of the knee were acquired. COMPARISON: None. FINDINGS: Bones: No fractures or dislocations. No suspicious bony lesions. Mild narrowing of the medial femoral tibial joint and mild periarticular osteophyte formation. Soft tissues: Moderate joint effusion. No suspicious soft tissue calcifications. IMPRESSION: Mild early knee joint degeneration, most notably involving the medial femorotibial joint. Dictated by: Puneet Díaz [place] Interpreted: Papo Arcos MD on 12/10/2021 at 16:40 Transcribed by: RYAN on 12/10/2021 at 16:41 Approved by: Papo Arcos M.D. on 12/10/2021 at 17:53
== END ==
PROVIDERS: PCP Family Medicine; Referring Provider Family Medicine; Visit Provider Family Medicine
DX: M17.0 Bilateral primary osteoarthritis of knee (principal); M25.561 Pain in right knee; M25.562 Pain in left knee; G89.29 Other chronic pain
CPT/HCPCS: 73562

== ENCOUNTER → 2021-12-13 08:49 | Outpatient (CLI) | payer BC, OTHER, MEDICAID, SELFPAY ==
--- NOTE | 2021-12-13 08:50 | DI.MRI.S_ITS ---
PROCEDURE: MR LUMBAR SPINE WO CON INDICATIONS: worsening pain... TECHNIQUE: Noncontrast sagittal T1 spin echo and T2 fast echo, sagittal STIR, and T2 fast spin echo through the lumbar spine. In cases with scoliosis, additional coronal T2 fast spin echo may be performed. COMPARISON: None. FINDINGS: Image quality: Excellent. Alignment and Curvature: There is normal bony alignment. Bone Marrow: Marrow is of normal overall signal. No acute vertebral body compression fractures. Modic type 1 degenerative endplate changes noted at L4-5 and L5-S1 Spinal Cord: Conus medullaris terminates at the L1 level. Visualized cord demonstrates normal signal and size. Paraspinous Soft Tissues: No paravertebral masses. T12-L1: Normal appearance. L1-L2: Normal appearance. L2-L3: Normal appearance. L3-L4: Normal appearance. L4-L5: Circumferential disc bulge and hypertrophic facet joints combined result in mild central stenosis. Mild bilateral foraminal stenosis L5-S1: Disc space narrowing and circumferential disc bulge with hypertrophic facet joints noted. No central stenosis. Moderate left and right foraminal stenosis IMPRESSION: 1. Multilevel degenerative disc disease and arthropathy in the lower lumbar spine results in moderate foraminal stenosis at L5-S1 Approved by: Amado Deras M.D. on 12/14/2021 at 14:54
== END ==
PROVIDERS: PCP Family Medicine; Referring Provider Family Medicine; Visit Provider Family Medicine
DX: M47.27 Other spondylosis with radiculopathy, lumbosacral region (principal); M51.17 Intervertebral disc disorders with radiculopathy, lumbosacral region; M48.07 Spinal stenosis, lumbosacral region; M51.36 Other intervertebral disc degeneration, lumbar region; M48.061 Spinal stenosis, lumbar region without neurogenic claudication
CPT/HCPCS: 72148

== ENCOUNTER → 2022-07-26 17:51 | Outpatient (CLI) | payer BC, OTHER, MEDICAID, SELFPAY ==
[2022-07-26 18:31] LABS: Hematocrit 44.8 % (41-53); Hemoglobin 15.9 g/dL (13.5-17.5)
[2022-07-26 19:11] LABS: BUN Creatinine Ratio 11.5 (6-22); Blood Urea Nitrogen 15 mg/dL (9-20); Calcium 8.7 mg/dL (8.4-10.2); Carbon Dioxide 29 mmol/L (22-32); Chloride 104 mmol/L (98-107); Estimated Glomerular Filt Rate > 60 mL/min (>60); Glucose 121 mg/dL (70-100); HEMOLYSIS < 15 (0-50); Potassium 4.3 mmol/L (3.4-5.1); Sodium 143 mmol/L (137-145)
[2022-07-26 19:13] LABS: Creatinine Urine Random 156.9 mg/dL
[2022-07-26 19:20] LABS: Protein (Total) Urine Random < 5 mg/dL (0-12); Protein Creatinine Ratio Urine 0.03 GRAM/24H
[2022-08-03 23:47] LABS: Parathyroid Hormone Int 72
== END ==
PROVIDERS: PCP Family Medicine; Referring Provider Student in an Organized Health Care Education/Training Program; Visit Provider Student in an Organized Health Care Education/Training Program
DX: N05.9 Unspecified nephritic syndrome with unspecified morphologic changes (principal); D64.9 Anemia, unspecified; N25.81 Secondary hyperparathyroidism of renal origin; R80.9 Proteinuria, unspecified
CPT/HCPCS: 36415; 80048; 82570; 83970; 84156; 85014; 85018

== ENCOUNTER → 2022-09-30 07:42 | Outpatient (CLI) | payer BC, OTHER, MEDICAID, SELFPAY ==
[2022-09-30 09:10] LABS: Alanine Aminotransferase 27 IU/L (<50); Albumin 4.3 g/dL (3.5-5.0); Albumin Globulin Ratio 1.6 (1.0-2.8); Alkaline Phosphatase 114 U/L (38-126); Aspartate Aminotransferase 24 IU/L (17-59); BUN Creatinine Ratio 13.9 (6-22); Bilirubin Total 0.9 mg/dL (0.2-1.3); Blood Urea Nitrogen 17 mg/dL (9-20); Calcium 8.5 mg/dL (8.4-10.2); Carbon Dioxide 25 mmol/L (22-32); Chloride 105 mmol/L (98-107); Estimated Glomerular Filt Rate > 60 mL/min (>60); Globulin 2.7 g/dL (1.7-4.1); Glucose 140 mg/dL (70-100); HEMOLYSIS < 15 (0-50); Sodium 139 mmol/L (137-145)
[2022-09-30 10:00] LABS: Creatinine Urine Random 194.9 mg/dL
[2022-09-30 10:04] LABS: Microalbumin Urine Random 0.6 mg/dL (0-1.6)
[2022-10-01 09:34] LABS: x Labcorp Estim. Avg Glu (eAG) 134 mg/dL (.); x Labcorp Hemoglobin A1c 6.3 % (4.8-5.6)
== END ==
PROVIDERS: PCP Family Medicine; Referring Provider Family Medicine; Visit Provider Family Medicine
DX: E11.9 Type 2 diabetes mellitus without complications (principal); N18.9 Chronic kidney disease, unspecified; Z79.4 Long term (current) use of insulin
CPT/HCPCS: 36415; 80053; 82043; 82570; 83036

== ENCOUNTER → 2023-02-02 14:54 | Outpatient (CLI) | payer BC, OTHER, MEDICAID, SELFPAY ==
[2023-02-02 17:29] LABS: Hemoglobin A1C% w Est Avg Glu 5.8 % (4.0-6.0)
[2023-02-02 17:51] LABS: Alanine Aminotransferase 30 IU/L (<50); Albumin 4.3 g/dL (3.5-5.0); Albumin Globulin Ratio 1.9 (1.0-2.8); Alkaline Phosphatase 103 U/L (38-126); Aspartate Aminotransferase 25 IU/L (17-59); BUN Creatinine Ratio 11.1 (6-22); Bilirubin Total 0.6 mg/dL (0.2-1.3); Blood Urea Nitrogen 14 mg/dL (9-20); Calcium 8.9 mg/dL (8.4-10.2); Carbon Dioxide 23 mmol/L (22-32); Chloride 104 mmol/L (98-107); Estimated Glomerular Filt Rate > 60 mL/min (>60); Globulin 2.3 g/dL (1.7-4.1); Glucose 154 mg/dL (70-100); HEMOLYSIS < 15 (0-50); Potassium 4.5 mmol/L (3.4-5.1); Sodium 137 mmol/L (137-145); Total Protein 6.6 g/dL (6.3-8.2)
[2023-02-02 17:57] LABS: Add Manual Diff / Slide Review NO; Basophils Absolute Auto 100 /uL (0-100); Basophils Percent Auto 1.1 % (0-2); Eosinophils Absolute Auto 200 /uL (0-450); Eosinophils Percent Auto 2.7 % (2-4); Hematocrit 44.9 % (41-53); Lymphocytes Absolute Auto 1900 /uL (1100-4500); Lymphocytes Percent Auto 25.3 % (25-40); Mean Corpuscular HGB Conc 35.6 % (30-36); Mean Corpuscular Hemoglobin 28.9 PG (26-34); Mean Corpuscular Volume 81.2 fL (80-100); Monocytes Absolute Auto 600 /uL (0-900); Monocytes Percent Auto 7.4 % (3-14); Neutrophils Absolute Auto 4800 /uL (1500-7000); Neutrophils Percent Auto 63.5 % (50-75); Platelet Count 166 X10^3/uL (150-400); Red Blood Cell Count 5.53 X10^6/uL (4.5-5.9); White Blood Cell Count 7.5 X10^3/uL (4.5-11.0)
== END ==
PROVIDERS: PCP Family Medicine; Referring Provider Family Medicine; Visit Provider Family Medicine
DX: E11.9 Type 2 diabetes mellitus without complications (principal); R10.9 Unspecified abdominal pain
CPT/HCPCS: 36415; 80053; 83036; 85025

== ENCOUNTER → 2023-02-03 10:48 | Outpatient (CLI) | payer BC, OTHER, MEDICAID, SELFPAY ==
[2023-02-03 11:55] LABS: Appearance Urine UA CLEAR; Bilirubin Urine UA NEGATIVE (NEGATIVE); Color Urine UA YELLOW; Glucose Urine UA NEGATIVE (Negative); Ketones Urine UA NEGATIVE (NEGATIVE); Leukocyte Esterase Urine UA NEGATIVE (NEGATIVE); Nitrite Urine UA NEGATIVE (Negative); Occult Blood Urine UA NEGATIVE (Negative); Protein Urine UA NEGATIVE (Negative); Specific Gravity Urine UA 1.025 (1.000-1.035); pH Urine UA 5.5 (4.5-8.0)
[2023-02-03 13:43] LABS: Bacteria Urine Occasional (0-1); Culture Indicated Urine Cult Not Indicated; RBC Urine 0-1/HPF (0-5/HPF); Squamous Epithelial Cell Urine None Seen (0-5/HPF); WBC Urine 0-1/HPF (0-5/HPF)
== END ==
PROVIDERS: PCP Family Medicine; Referring Provider Family Medicine; Visit Provider Family Medicine
DX: E11.9 Type 2 diabetes mellitus without complications (principal); R10.9 Unspecified abdominal pain; Z85.528 Personal history of other malignant neoplasm of kidney; Z87.442 Personal history of urinary calculi
CPT/HCPCS: 81001

== ENCOUNTER → 2023-02-04 09:50 | Outpatient (CLI) | payer BC, OTHER, MEDICAID, SELFPAY ==
--- NOTE | 2023-02-04 09:51 | DI.CT.S_ITS ---
PROCEDURE: CT ABDOMEN PELVIS W CON INDICATIONS: Right flank pain. h/o nephrectomy TECHNIQUE: After the administration of intravenous contrast, axial sections acquired from the lung bases to the pubic symphysis. Coronal and sagittal reformats were performed. For radiation dose reduction, the following was used: automated exposure control, adjustment of mA and/or kV according to patient size. COMPARISON: [facility], CT, CT KIDNEY URETER BLADDER (KUB), 04/14/2020, 10:42. [facility], CT, CT KIDNEY URETER BLADDER (KUB), 04/17/2021, 13:47. FINDINGS: Image quality: Excellent. Lung bases: Unremarkable. Heart: No significant findings. ABDOMEN: Liver: Unremarkable. Gallbladder: Unremarkable. Biliary ducts: Unremarkable. Pancreas: Unremarkable. Spleen: Unremarkable. Adrenal Glands: Unremarkable. Kidneys and Ureters: The right kidney is surgically absent. A low-density cyst is present within the midpole of the left kidney. No left hydronephrosis, nephrolithiasis, ureterolithiasis or hydroureter. Stomach and Bowel: Stomach, small bowel loops, and colon are unremarkable. Anastomotic suture is present within the sigmoid colon. The appendix is thin walled and gas filled. Peritoneum: No abnormal intraperitoneal fluid. No free air. Ventral Wall: No hernias. Abdominal Nodes: No retroperitoneal or mesenteric adenopathy by size criteria. Vessels: Aorta and inferior vena cava are normal in size. PELVIS: Pelvic Organs: Unremarkable. Bladder: Unremarkable. Pelvic Nodes: No enlarged lymph nodes. Miscellaneous: No hernias are seen. Bones: Unremarkable. IMPRESSION: 1. No acute intra-abdominal findings. Normal appendix. 2. No suspicious findings within the right renal fossa to explain patient's pain. Dictated by: Alcira Vasques M.D. on 02/04/2023 at 13:56 Approved by: Alcira Vasques M.D. on 02/04/2023 at 14:01
== END ==
PROVIDERS: PCP Family Medicine; Referring Provider Family Medicine; Visit Provider Family Medicine
DX: N28.1 Cyst of kidney, acquired (principal); R10.9 Unspecified abdominal pain; Z90.5 Acquired absence of kidney; Z98.0 Intestinal bypass and anastomosis status
CPT/HCPCS: 74177; Q9967

== ENCOUNTER → 2023-06-13 07:35 | Outpatient (CLI) | payer BC, SELFPAY ==
--- NOTE | 2023-06-13 07:37 | DI.RAD.S_ITS ---
PROCEDURE: XR LUMBAR SPINE MIN 4V INDICATIONS: LOW BACK PAIN TECHNIQUE: 5 views of the lumbar spine were acquired, including bilateral oblique views. COMPARISON: [facility], , XR LUMBAR SPINE MIN 4V, 03/18/2020, 11:22. FINDINGS: Bones: 5 nonrib-bearing vertebrae are present. Similar mild trace retrolisthesis of L4 on L5 and L5 on S1. Multilevel degenerative changes including intervertebral disc height loss and severe foraminal narrowing at L5-S1, [id number] at L3-L4 and L4-L5. Findings have progressed since prior radiograph 03/18/2020. Initially, bilateral facet arthropathy at L4-L5 and L5-S1 progressed since prior. No vertebral body compression fractures. No suspicious bony lesions. Soft tissues: Overlying bowel gas pattern is normal. No suspicious soft tissue calcifications. IMPRESSION: Multilevel degenerative changes, most severe at L5-S1, which has progressed since prior exam 2019. No acute osseous abnormality. Approved by: Erica Dixon M.D. on 06/13/2023 at 12:16
== END ==
PROVIDERS: PCP Family Medicine; Referring Provider Physical Medicine & Rehabilitation; Visit Provider Physical Medicine & Rehabilitation
DX: M48.061 Spinal stenosis, lumbar region without neurogenic claudication (principal); M47.816 Spondylosis without myelopathy or radiculopathy, lumbar region; M47.817 Spondylosis without myelopathy or radiculopathy, lumbosacral region
CPT/HCPCS: 72110

== ENCOUNTER 2023-06-28 07:26 | Outpatient (CLI) | payer BC, SELFPAY ==
[2023-06-28] VITALS (9 sets, daily range): BP systolic 116–137; BP diastolic 59–88; PULSE 76–88; RESP 14–18; TEMP 35.7; O2SAT 96–98
--- NOTE | 2023-06-28 08:00 | DI.RAD.S_ITS ---
PROCEDURE: PAIN L/S TRANSFORAM INJECT KRZYSZTOF COMPARISON: [facility], XA, PAIN L/S TRANSFORAM INJECT KRZYSZTOF, 06/11/2021, 10:15. INDICATIONS: RADICULOPATHY FINDINGS: A needle has been placed at the L4-L5 level for a transforaminal epidural steroid injection period no contrast has been injected IMPRESSION: Imaging guidance utilized for transforaminal epidural steroid injection. Dictated by: Alvaro Morris M.D. on 06/28/2023 at 18:54 Approved by: Alvaro Morris M.D. on 06/28/2023 at 18:55
[2023-06-28] MEDS: MIDAZOLAM 2 MG/2 ML VIAL IV ×2 (08:18→08:22)
[2023-06-28] MEDS: iopamidoL 15 ML VIAL 3 ML INJ (08:26)
[2023-06-28] MEDS: DEXAMETHASONE 10 MG/ML VIAL 20 MG INJ (08:27)
[2023-06-28] MEDS: BETAMETHASONE 30 MG/5 ML MDV 6 MG INJ (08:27)
[2023-06-28] MEDS: BUPIVACAINE 0.25% (PF) VIAL 2 ML INJ (08:28)
[2023-06-28] MEDS: LIDOCAINE 1% 20 ML 5 ML INJ (08:29)
--- NOTE | 2023-06-28 08:43 | PM.PROC.IR.1 ---
Date/Time/Diagnoses Date of procedure: 06/28/23 Time of procedure: 08:44 Pre-procedure diagnosis: 1. FORAMINAL STENOSIS WITH LE SYMPTOMS Procedure Notes Procedure: 1. FLUOROSCOPICALLY GUIDED CONTRAST CONTROLLED TRANSFORAMINAL EPIDURAL STEROID INJECTION - BILATERAL L4/5 TFESI Indications: Adriano is referred by Dr. Beltran for treatment of Foraminal Stenosis with bilateral LE Symptoms Physician: Justus Hart Total Fluoroscopy time (seconds): 14 Total sedation minutes: 19 Complications: none Procedure in detail & Post-procedure care: FINDINGS Foraminal Nerve Root Compression secondary to disc disease and facet hypertrophy DESCRIPTION OF PROCEDURE Following review of allergy and review of potential side effects and complications, including, but not necessarily limited to, infection, allergic reaction, local tissue breakdown, stroke, temporary or permanent nerve injury, paralysis, and possible , the patient indicated that the patient understood and agreed to proceed. An informed consent document was signed by the patient, witnessed by a nurse, and placed in the patient's chart. Additionally, other treatment options including medications, modalities, and physical therapy were reviewed with the patient. After review of previous anaesthesic history and IV conscious sedation the patient was deemed safe to proceed with today?s procedure with IV conscious sedation as ASA class II designation. Safety time-out was performed to confirm patient ID, procedure to be performed and site of procedure. IV sedation was accomplished with a combination of 4mg of Versed was administered by the RN after DO order, titrated to patient comfort during the course of the procedure while the patient remained responsive to all verbal commands In the prone position following sterile prep and drape of the lumbar region, the right L4/5 posterior neuroforamen was identified fluoroscopically. The skin was anesthetized via a 25-gauge 1.5-inch needle with 1% lidocaine solution. At this point, a 25-gauge 3.5-inch spinal needle was atraumatically introduced and advanced under fluoroscopic guidance through the posterior right L4/5 neuroforamen to approximately the anterior aspect of the canal. Depth was confirmed on lateral view. Following negative aspiration, injection of approximately 1.5cc of Isovue 200 under live fluoroscopy in the AP view confirmed excellent flow along the nerve root, into the epidural space without vascular or intrathecal uptake observed Radiological data, including multiple fluoroscopic views of the lumbosacral spine, reveal a spinal needle at the right L4/5 posterior neuroforamen. Subsequent views show flow of contrast material flowing superiorly and inferiorly along the nerve root confirming epidural flow. Subsequently, a test dose of 1.5cc of 1% lidocaine solution was administered and patient was observed for two minutes for signs or symptoms of complications, including abdominal pain, shortness of breath, bilateral upper or lower extremity weakness, nausea and vomiting, prior to steroid injection. At this point, a total of 2cc or 10mg of dexamethasone and 6mg betamethasone was injected without incident. Attention was then refocused to the left L4/5 level where the identical procedure was replicated. The procedure tolerated the procedure well without signs or symptoms of complications prior to transfer to the recovery area continued monitoring without incident. The patient was then transferred to the recovery area where they were observed for an appropriate time after the injection. The patient reported a VAS score of 7 prior to the procedure and a post-procedure VAS of 0. POST OP INSTRUCTIONS The patient was provided a Pain Log to continue to record their response to the target-specific procedure prior to follow-up visit with their referring physician. Additionally, specific post-injection care instructions and a contact number to our office were provided if concerns arise regarding possible complications associated with the procedure are suspected.
== END 2023-06-28 09:00 | disposition home or self-care (01) ==
LOC: RAD 07:26
PROVIDERS: PCP Family Medicine; Referring Provider Physical Medicine & Rehabilitation; Visit Provider Physical Medicine & Rehabilitation
DX: M48.061 Spinal stenosis, lumbar region without neurogenic claudication (principal); M51.16 Intervertebral disc disorders with radiculopathy, lumbar region; M47.26 Other spondylosis with radiculopathy, lumbar region
CPT/HCPCS: 64483; 99152; J0702; J1100; J2250; J3490

== ENCOUNTER → 2023-10-24 07:37 | Outpatient (CLI) | payer BC, SELFPAY ==
[2023-10-24 08:26] LABS: Hematocrit 44.4 % (41-53); Hemoglobin 15.8 g/dL (13.5-17.5)
[2023-10-24 08:56] LABS: BUN Creatinine Ratio 15.3 (6-22); Blood Urea Nitrogen 17 mg/dL (9-20); Calcium 8.6 mg/dL (8.4-10.2); Carbon Dioxide 25 mmol/L (22-32); Chloride 106 mmol/L (98-107); Estimated Glomerular Filt Rate > 60 mL/min (>60); Glucose 156 mg/dL (70-100); HEMOLYSIS 21 (0-50); Potassium 4.4 mmol/L (3.4-5.1); Sodium 138 mmol/L (137-145)
[2023-10-24 09:23] LABS: Creatinine Urine Random 87.33 mg/dL
[2023-10-24 09:25] LABS: Protein (Total) Urine Random < 5 mg/dL (0-12); Protein Creatinine Ratio Urine < 0.05 GRAM/24H
[2023-10-25 07:20] LABS: Parathyroid Hormone Int 76 pg/mL (15-65)
== END ==
LOC: LAB 07:38
PROVIDERS: PCP Family Medicine; Referring Provider Student in an Organized Health Care Education/Training Program; Visit Provider Student in an Organized Health Care Education/Training Program
DX: N05.9 Unspecified nephritic syndrome with unspecified morphologic changes (principal); D70.9 Neutropenia, unspecified; D63.1 Anemia in chronic kidney disease; N25.81 Secondary hyperparathyroidism of renal origin; R80.9 Proteinuria, unspecified
CPT/HCPCS: 36415; 80048; 82570; 83970; 84156; 85014; 85018

== ENCOUNTER 2023-10-25 09:22 | Outpatient (CLI) | payer BC, SELFPAY ==
[2023-10-25] VITALS (8 sets, daily range): BP systolic 108–116; BP diastolic 67–79; PULSE 67–76; RESP 10–18; TEMP 35.9; O2SAT 97–99
--- NOTE | 2023-10-25 09:45 | DI.RAD.S_ITS ---
PROCEDURE: PAIN L/S FACET INJ/BLK 1ST KRZYSZTOF INDICATIONS: Bilateral L4-L5 and S1 medial branch block LA COMPARISON: XA, PAIN L/S TRANSFORAM INJECT KRZYSZTOF, 06/28/2023, 9:24. [facility], XA, PAIN L/S FACET INJ/BLK 1ST KRZYSZTOF, 06/26/2019, 9:44. FINDINGS: Fluoroscopic spot filming was performed to verify placement of spinal needles at the L4 through S1 level(s), as labeled on the films. Appropriate location(s) of the needle tip(s) was confirmed by injection of iodinated contrast. IMPRESSION: Contrast a needle placement from L4 through S1 Dictated by: Briana Gonzalez M.D. on 10/25/2023 at 21:31 Approved by: Briana Gonzalez M.D. on 10/25/2023 at 21:31
[2023-10-25] MEDS: MIDAZOLAM 2 MG/2 ML VIAL IV (10:06)
[2023-10-25] MEDS: iopamidoL 15 ML VIAL 3 ML INJ (10:12)
[2023-10-25] MEDS: BUPIVACAINE 0.5% (PF) 10 ML VIAL 5 ML INJ (10:12)
[2023-10-25] MEDS: LIDOCAINE 1% 20 ML 5 ML INJ (10:13)
--- NOTE | 2023-10-25 10:27 | PM.PROC.IR.1 ---
Date/Time/Diagnoses Date of procedure: 10/25/23 Time of procedure: 10:27 Pre-procedure diagnosis: 1. FACET ARTHROPATHY Post-procedure diagnosis: same Procedure Notes Procedure: 1. BILATERAL- L4, L5 and S1 DIAGNOSTIC MB BLOCKS with LA Anesthetic Indications: Adriano is referred by Dr. Beltran for treatment of Bilateral Axial LBP. Physician: Justus Hart Total Fluoroscopy time (seconds): 11 Total sedation minutes: 17 Complications: none Procedure in detail & Post-procedure care: DESCRIPTION OF PROCEDURE Fluoroscopically guided, contrast-controlled bilateral L4, L5 and S1 medial branch blocks with 0.5cc of 0.5% Marcaine. Following review of allergy and review of potential side effects and complications, including, but not necessarily limited to, infection, allergic reaction, local tissue breakdown, nerve injury, paralysis, stroke and possible , the patient indicated that the patient understood and agreed to proceed. An informed consent document was signed by the patient, witnessed by a nurse, and placed in the patient's chart. After review of previous anaesthesic history and IV conscious sedation the patient was deemed safe to proceed with today's procedure with IV conscious sedation as ASA class II designation. Safety time-out was performed to confirm patient ID, procedure to be performed and site of procedure. IV sedation was accomplished with a combination of 2mg of Versed was administered by the RN after DO order, titrated to patient comfort during the course of the procedure while the patient remained responsive to all verbal commands In the prone position, following sterile prep and drape of the lumbar region, the right L4, L5 and S1 anatomical location of the medial branch of the dorsal ramus was identified fluoroscopically. Subsequently an anesthetic skin wheal using 1% lidocaine solution was initiated at each of the anatomical spots. Subsequently then a 22-gauge 3.5-inch spinal needle was atraumatically introduced and advanced under fluoroscopic guidance at each of the corresponding sites at the right L4, L5 and S1 MB. After negative aspiration, 0.2cc of Isovue 200 was injected, confirming placement without vascular or intrathecal uptake. Subsequently then 0.5cc of 0.5% Marcaine solution was injected at each of the corresponding sites at the right L4, L5 and S1 medial branch locations. The identical procedure was replicated on the left. The patient tolerated the procedure well without signs or symptoms of complications prior to transfer to the recovery area continued monitoring without incident. Post-procedure, the patient was monitored initiating provocative activities to measure the amount of relief from block of the facetogenic pain. The patient reported a VAS of 7 prior to the procedure and a post-procedure VAS of 1. It has been a pleasure to assist in the diagnostic and therapeutic care of your patient. POST OP INSTRUCTIONS The patient was provided with a Pain Log to complete over the next several hours and subsequent days prior to the patient's follow up with the ordering physician. If the patient has portable sawmill operator relief to the solution applied, then they may be a candidate for medial branch rhizotomy. The patient is aware, was provided, once again, with a Pain Log and will follow up with the referring physician for review and clinical correlation
== END 2023-10-25 10:41 | disposition home or self-care (01) ==
PROVIDERS: PCP Family Medicine; Referring Provider Physical Medicine & Rehabilitation; Visit Provider Physical Medicine & Rehabilitation
DX: M47.816 Spondylosis without myelopathy or radiculopathy, lumbar region (principal); M47.817 Spondylosis without myelopathy or radiculopathy, lumbosacral region
CPT/HCPCS: 64493; 64494; 99152; J2250

== ENCOUNTER → 2024-03-21 11:14 | Outpatient (CLI) | payer BC, OTHER, MEDICAID, SELFPAY ==
--- NOTE | 2024-03-21 11:19 | DI.RAD.S_ITS ---
PROCEDURE: XR HAND LT MIN 3V INDICATIONS: left hand pain trigger finger TECHNIQUE: 3 views of the hand(s) acquired. COMPARISON: None. FINDINGS: Bones: No fractures or dislocations. Mild osteoarthritic changes are noted throughout left hand. Carpal bones are normally aligned. No suspicious bony lesions. Soft tissues: No suspicious soft tissue calcifications. 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 No acute fracture or dislocation. No suspicious bony lesions. No gross soft tissue abnormalities. Dictated by: Alex Stanley M.D. on 03/21/2024 at 17:52 Approved by: Alex Stanley M.D. on 03/21/2024 at 17:58
== END ==
LOC: RAD 11:18
PROVIDERS: PCP Family Medicine; Referring Provider Family Medicine; Visit Provider Family Medicine
DX: M65.342 Trigger finger, left ring finger (principal); M79.642 Pain in left hand; M19.042 Primary osteoarthritis, left hand; M19.032 Primary osteoarthritis, left wrist
CPT/HCPCS: 73130

== ENCOUNTER → 2024-03-23 07:50 | Outpatient (CLI) | payer BC, OTHER, MEDICAID, SELFPAY ==
[2024-03-23 08:08] LABS: Add Manual Diff / Slide Review NO; Basophils Absolute Auto 100 /uL (0-100); Basophils Percent Auto 1.1 % (0-2); Eosinophils Absolute Auto 300 /uL (0-450); Eosinophils Percent Auto 3.6 % (2-4); Hematocrit 45.2 % (41-53); Hemoglobin 16.1 g/dL (13.5-17.5); Lymphocytes Absolute Auto 1900 /uL (1100-4500); Lymphocytes Percent Auto 26.5 % (25-40); Mean Corpuscular HGB Conc 35.6 % (30-36); Mean Corpuscular Hemoglobin 29.4 PG (26-34); Mean Corpuscular Volume 82.6 fL (80-100); Monocytes Absolute Auto 600 /uL (0-900); Monocytes Percent Auto 8.1 % (3-14); Neutrophils Absolute Auto 4400 /uL (1500-7000); Neutrophils Percent Auto 60.7 % (50-75); Platelet Count 177 X10^3/uL (150-400); Red Blood Cell Count 5.48 X10^6/uL (4.5-5.9); Red Cell Distribution Width 13.8 % (11.6-14.8); White Blood Cell Count 7.3 X10^3/uL (4.5-11.0)
[2024-03-23 09:01] LABS: Hemoglobin A1C% w Est Avg Glu 6.8 % (4.0-6.0)
[2024-03-23 09:04] LABS: Alanine Aminotransferase 28 IU/L (<50); Albumin 4.3 g/dL (3.5-5.0); Alkaline Phosphatase 98 U/L (38-126); Aspartate Aminotransferase 27 IU/L (17-59); BUN Creatinine Ratio 15.4 (6-22); Bilirubin Total 0.9 mg/dL (0.2-1.3); Blood Urea Nitrogen 19 mg/dL (9-20); Calcium 9.3 mg/dL (8.4-10.2); Carbon Dioxide 28 mmol/L (22-32); Chloride 103 mmol/L (98-107); Cholesterol 186 mg/dL (140-199); Estimated Glomerular Filt Rate > 60 mL/min (>60); Globulin 2.2 g/dL (1.7-4.1); Glucose 219 mg/dL (70-100); HDL Cholesterol 41 mg/dL (40-60); HEMOLYSIS 16 (0-50); LDL Cholesterol Calculated 107 mg/dL (<100); Potassium 4.4 mmol/L (3.4-5.1); Sodium 138 mmol/L (137-145); Total Protein 6.5 g/dL (6.3-8.2); Triglycerides 188 mg/dL (35-150)
[2024-03-23 09:25] LABS: Vitamin D 25 Hydroxy (D3) 32.6 ng/mL (30.0-100.0)
[2024-03-23 09:33] LABS: Prostate Specific Antigen Scrn 1.12 ng/mL (0.1-4.0)
== END ==
LOC: LAB 07:51
PROVIDERS: PCP Family Medicine; Referring Provider Family Medicine; Visit Provider Family Medicine
DX: Z12.5 Encounter for screening for malignant neoplasm of prostate (principal); E11.9 Type 2 diabetes mellitus without complications; N18.9 Chronic kidney disease, unspecified; E21.5 Disorder of parathyroid gland, unspecified
CPT/HCPCS: 36415; 80053; 80061; 82306; 83036; 85025; G0103

== ENCOUNTER → 2024-07-07 08:28 | Outpatient (CLI) | payer BC, SELFPAY ==
[2024-07-07 09:55] LABS: Hemoglobin A1C% w Est Avg Glu 6.5 % (4.0-6.0)
[2024-07-07 09:58] LABS: Alanine Aminotransferase 27 IU/L (<50); Albumin 4.5 g/dL (3.5-5.0); Alkaline Phosphatase 82 U/L (38-126); Aspartate Aminotransferase 26 IU/L (17-59); BUN Creatinine Ratio 13.1 (6-22); Bilirubin Total 0.8 mg/dL (0.2-1.3); Blood Urea Nitrogen 17 mg/dL (9-20); Calcium 9.1 mg/dL (8.4-10.2); Carbon Dioxide 29 mmol/L (22-32); Chloride 105 mmol/L (98-107); Estimated Glomerular Filt Rate > 60 mL/min (>60); Globulin 2.2 g/dL (1.7-4.1); Glucose 163 mg/dL (70-100); HEMOLYSIS < 15 (0-50); Potassium 4.4 mmol/L (3.4-5.1); Sodium 140 mmol/L (137-145); Total Protein 6.7 g/dL (6.3-8.2)
== END ==
PROVIDERS: PCP Family Medicine; Referring Provider Family Medicine; Visit Provider Family Medicine
DX: E11.9 Type 2 diabetes mellitus without complications (principal); N18.9 Chronic kidney disease, unspecified; Z85.528 Personal history of other malignant neoplasm of kidney
CPT/HCPCS: 36415; 80053; 83036

== ENCOUNTER → 2024-09-14 18:01 | Outpatient (CLI) | payer OTHER, SELFPAY ==
[2024-09-14 19:40] LABS: Influenza A - CEPHEID Flu A NEGATIVE (NEGATIVE); Influenza B - CEPHEID Flu B NEGATIVE (NEGATIVE); Respiratory Syncytial Virus Negative (Negative)
[2024-09-14 19:58] LABS: COVID-19 CEPHEID 4-PLEX PCR Negative (Negative)
== END ==
PROVIDERS: PCP Family Medicine; Visit Provider Physician Assistant
DX: R05.1 Acute cough (principal)
CPT/HCPCS: 0241U

== ENCOUNTER 2024-10-30 07:31 | Outpatient (CLI) | payer OTHER, SELFPAY ==
[2024-10-30] VITALS (9 sets, daily range): BP systolic 114–137; BP diastolic 75–93; PULSE 84–95; RESP 16–18; TEMP 36; O2SAT 96–98
[2024-10-30] MEDS: MIDAZOLAM 2 MG/2 ML VIAL IV ×2 (08:29→08:39)
[2024-10-30] MEDS: LIDOCAINE 1% 20 ML 5 ML INJ (08:39)
[2024-10-30] MEDS: iopamidoL 15 ML VIAL 3 ML INJ (08:40)
[2024-10-30] MEDS: LIDOCAINE 2% INJ MDV 20ML 5 ML INJ (08:40)
--- NOTE | 2024-10-30 08:54 | P.PCN_ITS ---
Date/Time/Diagnoses Date of procedure: 10/30/24 Time of procedure: 08:54 Pre-procedure diagnosis: 1. FACET ARTHROPATHY Post-procedure diagnosis: same Procedure Notes Procedure: 1. BILATERAL- L4, L5 and S1 DIAGNOSTIC MB BLOCKS with SA Anesthetic Indications: Adriano is referred by Dr. Beltran for treatment of Bilateral Axial LBP. Physician: Justus Hart Total Fluoroscopy time (seconds): 12 Total sedation minutes: 20 Complications: none Procedure in detail & Post-procedure care: DESCRIPTION OF PROCEDURE Fluoroscopically guided, contrast-controlled bilateral L4, L5 and S1 medial branch blocks with 0.5cc of 2% Lidocaine. Following review of allergy and review of potential side effects and complications, including, but not necessarily limited to, infection, allergic reaction, local tissue breakdown, nerve injury, paralysis, stroke and possible , the patient indicated that the patient understood and agreed to proceed. An informed consent document was signed by the patient, witnessed by a nurse, and placed in the patient's chart. After review of previous anaesthesic history and IV conscious sedation the patient was deemed safe to proceed with today's procedure with IV conscious sedation as ASA class II designation. Safety time-out was performed to confirm patient ID, procedure to be performed and site of procedure. IV sedation was accomplished with a combination of 4mg of Versed was administered by the RN after DO order, titrated to patient comfort during the course of the procedure while the patient remained responsive to all verbal commands In the prone position, following sterile prep and drape of the lumbar region, the right L4, L5 and S1 anatomical location of the medial branch of the dorsal ramus was identified fluoroscopically. Subsequently an anesthetic skin wheal us ing 1% lidocaine solution was initiated at each of the anatomical spots. Subsequently then a 22-gauge 3.5-inch spinal needle was atraumatically introduced and advanced under fluoroscopic guidance at each of the corresponding sites at the right L4, L5 and S1 MB. After negative aspiration, 0.2cc of Isovue 200 was injected, confirming placement without vascular or intrathecal uptake. Subsequently then 0.5cc of 2% Lidocaine solution was injected at each of the corresponding sites at the right L4, L5 and S1 medial branch locations. The identical procedure was replicated on the left. The patient tolerated the procedure well without signs or symptoms of complications prior to transfer to the recovery area continued monitoring without incident. Post-procedure, the patient was monitored initiating provocative activities to measure the amount of relief from block of the facetogenic pain. The patient reported a VAS of 7 prior to the procedure and a post-procedure VAS of 1. It has been a pleasure to assist in the diagnostic and therapeutic care of your patient. POST OP INSTRUCTIONS The patient was provided with a Pain Log to complete over the next several hours and subsequent days prior to the patient's follow up with the ordering physician. If the patient has imitation marble mechanic relief to the solution applied, then they may be a candidate for medial branch rhizotomy. The patient is aware, was provided, once again, with a Pain Log and will follow up with the referring physician for review and clinical correlation
== END 2024-10-30 09:20 | disposition home or self-care (01) ==
PROVIDERS: PCP Family Medicine; Referring Provider Physical Medicine & Rehabilitation; Visit Provider Physical Medicine & Rehabilitation
DX: M47.817 Spondylosis without myelopathy or radiculopathy, lumbosacral region (principal)
CPT/HCPCS: 64493; 64494; 99152; J2250

== ENCOUNTER → 2024-11-30 10:28 | Outpatient (CLI) | payer BC, SELFPAY ==
--- NOTE | 2024-11-30 10:33 | DI.CT.S_ITS ---
PROCEDURE: CT ABDOMEN PELVIS W CON INDICATIONS: 54 y/o M w/ h/o RCC s/p right nephrectomy TECHNIQUE: After the administration of intravenous contrast, axial sections acquired from the lung bases to the pubic symphysis. Coronal and sagittal reformats were performed. For radiation dose reduction, the following was used: automated exposure control, adjustment of mA and/or kV according to patient size. COMPARISON: [facility], CT, CT ABDOMEN PELVIS W CON, 02/04/2023, 10:01. FINDINGS: Image quality: Diagnostic. Lower Chest: No significant findings. ABDOMEN: Liver: No solid mass. Gallbladder: No radiopaque gallstones or wall thickening. Biliary ducts: No biliary dilation. Pancreas: No ductal dilation. Spleen: Size is within normal limits. Adrenal Glands: No adrenal nodules. Kidneys and Ureters: Status post right nephrectomy. No definite focal mass in this region. No focal lesion on the left. Stomach and Bowel: Normal colonic caliber, without significant wall thickening. The appendix is normal. Anastomosis in the region of the sigmoid. No inflammatory changes. Peritoneum: No abnormal intraperitoneal fluid. No free air. Ventral Wall: There is a supraumbilical ventral hernia measuring 6.5 x 1.7 cm, containing fat and part of the wall of a small bowel loop, no signs of complications. Abdominal Nodes: No retroperitoneal or mesenteric adenopathy by size criteria. Vessels: Aorta and inferior vena cava are normal in size. PELVIS: Pelvic Organs: Unremarkable. Bladder: No bladder wall thickening, accounting for underdistention. Pelvic Nodes: No enlarged lymph nodes. Miscellaneous: No inguinal hernias are seen. Bones: No aggressive osseous abnormality. IMPRESSION: No acute intra-abdominal abnormality or suspicious focal lesion seen. Dictated by: Temo Hernandez M.D. on 12/01/2024 at 17:31 Approved by: Temo Hernandez M.D. on 12/01/2024 at 17:36
--- NOTE | 2024-11-30 10:33 | DI.RAD.S_ITS ---
PROCEDURE: XR CHEST 2V INDICATIONS: 54 y/o M w/ h/o RCC s/p right nephrectomy TECHNIQUE: 2 views of the chest were acquired. COMPARISON: [facility], CR, XR CHEST 1V, 09/02/2018, 0:10. FINDINGS: Surgical changes and devices: None. Lungs and pleura: Lungs are clear. No pleural effusions or pneumothorax. Mediastinum: Mediastinal contours are normal. Heart size is normal. Bones and chest wall: No suspicious bony abnormalities. Soft tissues appear unremarkable. IMPRESSION: No acute cardiopulmonary abnormality is seen. Dictated by: Td Cr M.D. on 11/30/2024 at 13:15 Approved by: Td Cr M.D. on 11/30/2024 at 13:15
[2024-11-30 11:22] LABS: Estimated Glomerular Filt Rate > 60 mL/min (>60)
[2024-11-30 12:29] LABS: Add Manual Diff / Slide Review NO; Basophils Absolute Auto 100 /uL (0-100); Basophils Percent Auto 0.8 % (0-2); Eosinophils Absolute Auto 300 /uL (0-450); Eosinophils Percent Auto 3.8 % (2-4); Hematocrit 44.5 % (41-53); Hemoglobin 16.2 g/dL (13.5-17.5); Lymphocytes Absolute Auto 1700 /uL (1100-4500); Lymphocytes Percent Auto 23.9 % (25-40); Mean Corpuscular HGB Conc 36.3 % (30-36); Mean Corpuscular Hemoglobin 29.9 PG (26-34); Mean Corpuscular Volume 82.3 fL (80-100); Monocytes Absolute Auto 500 /uL (0-900); Monocytes Percent Auto 6.9 % (3-14); Neutrophils Absolute Auto 4600 /uL (1500-7000); Neutrophils Percent Auto 64.6 % (50-75); Platelet Count 174 X10^3/uL (150-400); Red Cell Distribution Width 13.9 % (11.6-14.8); White Blood Cell Count 7.1 X10^3/uL (4.5-11.0)
[2024-11-30 12:56] LABS: Alanine Aminotransferase 28 IU/L (<50); Albumin 4.7 g/dL (3.5-5.0); Albumin Globulin Ratio 2.2 (1.0-2.8); Alkaline Phosphatase 107 U/L (38-126); Aspartate Aminotransferase 23 IU/L (17-59); BUN Creatinine Ratio 13.4 (6-22); Bilirubin Total 0.9 mg/dL (0.2-1.3); Blood Urea Nitrogen 15 mg/dL (9-20); Calcium 9.2 mg/dL (8.4-10.2); Carbon Dioxide 25 mmol/L (22-32); Chloride 104 mmol/L (98-107); Cholesterol 207 mg/dL (140-199); Estimated Glomerular Filt Rate > 60 mL/min (>60); Globulin 2.1 g/dL (1.7-4.1); Glucose 220 mg/dL (70-99); HDL Cholesterol 39 mg/dL (40-60); HEMOLYSIS < 15 (0-50); LDL Cholesterol Calculated 117 mg/dL (<100); Potassium 4.4 mmol/L (3.4-5.1); Sodium 137 mmol/L (137-145); Total Protein 6.8 g/dL (6.3-8.2); Triglycerides 256 mg/dL (35-150)
[2024-11-30 13:26] LABS: Prostate Specific Antigen Scrn 1.19 ng/mL (0.1-4.0)
== END ==
PROVIDERS: PCP Family Medicine; Referring Provider Urology; Visit Provider Urology
DX: Z08 Encounter for follow-up examination after completed treatment for malignant neoplasm (principal); Z85.528 Personal history of other malignant neoplasm of kidney; E11.22 Type 2 diabetes mellitus with diabetic chronic kidney disease; N18.9 Chronic kidney disease, unspecified; Z12.5 Encounter for screening for malignant neoplasm of prostate; N05.9 Unspecified nephritic syndrome with unspecified morphologic changes; R80.9 Proteinuria, unspecified; D70.9 Neutropenia, unspecified; D63.1 Anemia in chronic kidney disease; N25.81 Secondary hyperparathyroidism of renal origin
CPT/HCPCS: 36415; 71046; 74177; 80053; 80061; 82043; 82565; 82570; 83036; 85025; G0103; Q9967